=== PATIENT | female | born 1930 | race Two or more races ===

== ENCOUNTER 2016-10-10 10:18 | Outpatient (CLI) | payer MEDICARE, OTHER | END 2016-10-10 23:59 | disposition home or self-care (01) | LOC: WOU 10:18 | PROVIDERS: ATTEND Podiatrist Foot & Ankle Surgery | DX: L84 Corns and callosities (principal); E11.42 Type 2 diabetes mellitus with diabetic polyneuropathy; E11.51 Type 2 diabetes mellitus with diabetic peripheral angiopathy without gangrene | CPT/HCPCS: G0463 ==

== ENCOUNTER 2017-01-16 08:40 | Outpatient (CLI) | payer MEDICARE, OTHER | END 2017-01-16 23:59 | disposition home or self-care (01) | LOC: WOU 08:40 | PROVIDERS: ATTEND Podiatrist Foot & Ankle Surgery | DX: Z51.89 Encounter for other specified aftercare (principal); L84 Corns and callosities; E11.51 Type 2 diabetes mellitus with diabetic peripheral angiopathy without gangrene; B35.1 Tinea unguium; E11.42 Type 2 diabetes mellitus with diabetic polyneuropathy | CPT/HCPCS: A6402 ×2; G0463 ==

== ENCOUNTER 2017-04-17 08:31 | Outpatient (CLI) | payer MEDICARE, OTHER | END 2017-04-17 23:59 | disposition home or self-care (01) | LOC: WOU 08:31 | PROVIDERS: ATTEND Podiatrist Foot & Ankle Surgery | DX: L84 Corns and callosities (principal); Z74.09 Other reduced mobility; E11.51 Type 2 diabetes mellitus with diabetic peripheral angiopathy without gangrene; M21.6X2 Other acquired deformities of left foot; L85.3 Xerosis cutis; E11.42 Type 2 diabetes mellitus with diabetic polyneuropathy | CPT/HCPCS: G0463 ==

== ENCOUNTER 2017-06-19 11:05 | Outpatient (CLI) | payer MEDICARE, OTHER | END 2017-06-19 23:59 | disposition home or self-care (01) | LOC: WOU 11:05 | PROVIDERS: ATTEND Podiatrist Foot & Ankle Surgery | DX: Z09 Encounter for follow-up examination after completed treatment for conditions other than malignant neoplasm (principal); E11.51 Type 2 diabetes mellitus with diabetic peripheral angiopathy without gangrene; B35.1 Tinea unguium; L84 Corns and callosities; M21.962 Unspecified acquired deformity of left lower leg; Z74.09 Other reduced mobility | CPT/HCPCS: G0463 ==

== ENCOUNTER 2017-10-02 10:15 | Outpatient (CLI) | payer MEDICARE, OTHER | END 2017-10-02 23:59 | disposition home or self-care (01) | LOC: WOU 10:15 | PROVIDERS: ATTEND Podiatrist Foot & Ankle Surgery | DX: Z09 Encounter for follow-up examination after completed treatment for conditions other than malignant neoplasm (principal); E11.42 Type 2 diabetes mellitus with diabetic polyneuropathy; E11.51 Type 2 diabetes mellitus with diabetic peripheral angiopathy without gangrene; Z86.31 Personal history of diabetic foot ulcer; L84 Corns and callosities; M21.6X2 Other acquired deformities of left foot | CPT/HCPCS: A6402; G0463 ==

== ENCOUNTER 2017-10-08 09:42 | Outpatient (CLI) | payer MEDICARE, OTHER | END 2017-10-08 23:59 | disposition home or self-care (01) | LOC: WOU 09:42 | PROVIDERS: ATTEND Podiatrist Foot & Ankle Surgery | DX: I70.223 Atherosclerosis of native arteries of extremities with rest pain, bilateral legs (principal); I77.1 Stricture of artery ==

== ENCOUNTER 2017-10-27 13:08 | Outpatient (CLI) | payer MEDICARE, OTHER | END 2017-10-27 23:59 | disposition home or self-care (01) | LOC: VASLAB 13:08 | PROVIDERS: ATTEND Surgery Vascular Surgery | DX: I73.9 Peripheral vascular disease, unspecified (principal); Z98.890 Other specified postprocedural states; M79.672 Pain in left foot | CPT/HCPCS: G0463 ==

== ENCOUNTER 2017-11-20 08:00 | Outpatient (CLI) | payer MEDICARE, OTHER | END 2017-11-20 23:59 | disposition home or self-care (01) | LOC: WOU 08:00 | PROVIDERS: ATTEND Podiatrist Foot & Ankle Surgery | DX: L97.422 Non-pressure chronic ulcer of left heel and midfoot with fat layer exposed (principal); E11.42 Type 2 diabetes mellitus with diabetic polyneuropathy; E11.621 Type 2 diabetes mellitus with foot ulcer; E11.51 Type 2 diabetes mellitus with diabetic peripheral angiopathy without gangrene | CPT/HCPCS: 11042; A6402 ==

== ENCOUNTER 2017-12-02 08:00 | Outpatient (CLI) | payer MEDICARE, OTHER | END 2017-12-02 23:59 | disposition home or self-care (01) | LOC: WOU 08:00 | PROVIDERS: ATTEND Podiatrist Foot & Ankle Surgery | DX: E11.51 Type 2 diabetes mellitus with diabetic peripheral angiopathy without gangrene (principal); L84 Corns and callosities; L85.3 Xerosis cutis; M79.672 Pain in left foot; Z86.31 Personal history of diabetic foot ulcer; Z87.2 Personal history of diseases of the skin and subcutaneous tissue; Z79.84 Long term (current) use of oral hypoglycemic drugs | CPT/HCPCS: A6402; G0463 ==

== ENCOUNTER 2017-12-30 08:10 | Outpatient (CLI) | payer MEDICARE, OTHER | END 2017-12-30 23:59 | disposition home or self-care (01) | LOC: WOU 08:10 | PROVIDERS: ATTEND Podiatrist Foot & Ankle Surgery | DX: E11.621 Type 2 diabetes mellitus with foot ulcer (principal); L97.429 Non-pressure chronic ulcer of left heel and midfoot with unspecified severity; E11.51 Type 2 diabetes mellitus with diabetic peripheral angiopathy without gangrene; E11.65 Type 2 diabetes mellitus with hyperglycemia; Z79.84 Long term (current) use of oral hypoglycemic drugs; L84 Corns and callosities; M79.672 Pain in left foot | CPT/HCPCS: 11055; A6209; A6402 ==

== ENCOUNTER 2018-01-06 08:10 | Outpatient (CLI) | payer MEDICARE, OTHER | END 2018-01-06 23:59 | disposition home or self-care (01) | LOC: WOU 08:10 | PROVIDERS: ATTEND Podiatrist Foot & Ankle Surgery | DX: E11.621 Type 2 diabetes mellitus with foot ulcer (principal); E11.51 Type 2 diabetes mellitus with diabetic peripheral angiopathy without gangrene; L97.428 Non-pressure chronic ulcer of left heel and midfoot with other specified severity; L84 Corns and callosities; Z79.84 Long term (current) use of oral hypoglycemic drugs | CPT/HCPCS: 11042; A6209; A6402 ==

== ENCOUNTER 2018-01-15 08:11 | Outpatient (CLI) | payer MEDICARE, OTHER | END 2018-01-15 23:59 | disposition home or self-care (01) | LOC: WOU 08:11 | PROVIDERS: ATTEND Podiatrist Foot & Ankle Surgery | DX: L84 Corns and callosities (principal); M79.672 Pain in left foot; L90.9 Atrophic disorder of skin, unspecified; M21.6X2 Other acquired deformities of left foot; E11.9 Type 2 diabetes mellitus without complications; Z79.84 Long term (current) use of oral hypoglycemic drugs | CPT/HCPCS: A6209; A6402 ×2; G0463 ==

== ENCOUNTER 2018-03-02 07:50 | Outpatient (CLI) | payer MEDICARE, OTHER | END 2018-03-02 23:59 | disposition home or self-care (01) | LOC: WOU 07:50 | PROVIDERS: ATTEND Podiatrist Foot & Ankle Surgery | DX: L84 Corns and callosities (principal); E11.51 Type 2 diabetes mellitus with diabetic peripheral angiopathy without gangrene; M21.6X2 Other acquired deformities of left foot | CPT/HCPCS: G0463; Z7610 ==

== ENCOUNTER 2018-03-08 12:13 | Outpatient (CLI) | payer MEDICARE, OTHER | END 2018-03-08 23:59 | disposition home or self-care (01) | LOC: WOU 12:13 | PROVIDERS: ATTEND Podiatrist Foot & Ankle Surgery | DX: I73.9 Peripheral vascular disease, unspecified (principal) | CPT/HCPCS: 93926-TC; Z7610 ==

== ENCOUNTER 2018-04-06 08:00 | Outpatient (CLI) | payer MEDICARE, OTHER | END 2018-04-06 23:59 | disposition home or self-care (01) | LOC: WOU 08:00 | PROVIDERS: ATTEND Podiatrist Foot & Ankle Surgery | DX: L84 Corns and callosities (principal); E11.42 Type 2 diabetes mellitus with diabetic polyneuropathy; Z79.84 Long term (current) use of oral hypoglycemic drugs; I73.9 Peripheral vascular disease, unspecified; L90.9 Atrophic disorder of skin, unspecified; M79.672 Pain in left foot | CPT/HCPCS: G0463; Z7610 ==

== ENCOUNTER 2018-06-01 13:24 | Outpatient (CLI) | payer MEDICARE, OTHER | END 2018-06-01 23:59 | disposition home or self-care (01) | LOC: WOU 13:24 | PROVIDERS: ATTEND Podiatrist Foot & Ankle Surgery | DX: Z09 Encounter for follow-up examination after completed treatment for conditions other than malignant neoplasm (principal); E11.51 Type 2 diabetes mellitus with diabetic peripheral angiopathy without gangrene; L90.9 Atrophic disorder of skin, unspecified; M21.6X2 Other acquired deformities of left foot; L84 Corns and callosities | CPT/HCPCS: A6402; G0463; Z7610 ==

== ENCOUNTER 2018-10-05 14:37 | Outpatient (CLI) | payer MEDICARE, MEDICAID | END 2018-10-05 23:59 | disposition home or self-care (01) | LOC: WOU 14:37 | PROVIDERS: ATTEND Podiatrist Foot & Ankle Surgery | DX: E11.42 Type 2 diabetes mellitus with diabetic polyneuropathy (principal); L84 Corns and callosities; E11.51 Type 2 diabetes mellitus with diabetic peripheral angiopathy without gangrene; Z79.84 Long term (current) use of oral hypoglycemic drugs; I73.9 Peripheral vascular disease, unspecified; Z98.62 Peripheral vascular angioplasty status; R26.9 Unspecified abnormalities of gait and mobility; Z98.890 Other specified postprocedural states | CPT/HCPCS: G0463; Z7610 ==

== ENCOUNTER 2018-10-29 08:45 | Outpatient (CLI) | payer MEDICARE, OTHER | END 2018-10-29 23:59 | disposition home or self-care (01) | LOC: WOU 08:45 | PROVIDERS: ATTEND Podiatrist Foot & Ankle Surgery | DX: Z09 Encounter for follow-up examination after completed treatment for conditions other than malignant neoplasm (principal); L84 Corns and callosities; E11.51 Type 2 diabetes mellitus with diabetic peripheral angiopathy without gangrene; Z79.84 Long term (current) use of oral hypoglycemic drugs; M25.562 Pain in left knee; M23.8X2 Other internal derangements of left knee | CPT/HCPCS: G0463 ==

== ENCOUNTER 2018-11-26 08:05 | Outpatient (CLI) | payer MEDICARE, OTHER | END 2018-11-26 23:59 | disposition home or self-care (01) | LOC: WOU 08:05 | PROVIDERS: ATTEND Podiatrist Foot & Ankle Surgery | DX: Z09 Encounter for follow-up examination after completed treatment for conditions other than malignant neoplasm (principal); I73.9 Peripheral vascular disease, unspecified; E11.42 Type 2 diabetes mellitus with diabetic polyneuropathy; L84 Corns and callosities; M21.962 Unspecified acquired deformity of left lower leg; Z79.01 Long term (current) use of anticoagulants; Z79.84 Long term (current) use of oral hypoglycemic drugs | CPT/HCPCS: G0463 ==

== ENCOUNTER → 2019-01-28 | Outpatient (CLI) | payer MEDICARE, OTHER | END | disposition home or self-care (01) | LOC: WOU 08:05 | PROVIDERS: ATTEND Podiatrist Foot & Ankle Surgery | DX: Z09 Encounter for follow-up examination after completed treatment for conditions other than malignant neoplasm (principal); Z86.31 Personal history of diabetic foot ulcer; E11.42 Type 2 diabetes mellitus with diabetic polyneuropathy; E11.51 Type 2 diabetes mellitus with diabetic peripheral angiopathy without gangrene; L84 Corns and callosities; S90.32XA Contusion of left foot, initial encounter; X58.XXXA Exposure to other specified factors, initial encounter; Y92.89 Other specified places as the place of occurrence of the external cause; L85.3 Xerosis cutis; L90.9 Atrophic disorder of skin, unspecified; M21.6X2 Other acquired deformities of left foot; Z79.01 Long term (current) use of anticoagulants; Z79.84 Long term (current) use of oral hypoglycemic drugs | CPT/HCPCS: 82962; G0463 ==

== ENCOUNTER 2019-02-09 12:45 | Outpatient (CLI) | payer MEDICARE, OTHER | END 2019-02-09 23:59 | disposition home or self-care (01) | LOC: WOU 12:45 | PROVIDERS: ATTEND Podiatrist Foot & Ankle Surgery | DX: Z09 Encounter for follow-up examination after completed treatment for conditions other than malignant neoplasm (principal); L84 Corns and callosities; E11.51 Type 2 diabetes mellitus with diabetic peripheral angiopathy without gangrene; E11.42 Type 2 diabetes mellitus with diabetic polyneuropathy; S90.122D Contusion of left lesser toe(s) without damage to nail, subsequent encounter; X58.XXXD Exposure to other specified factors, subsequent encounter; Z79.84 Long term (current) use of oral hypoglycemic drugs | CPT/HCPCS: A6402; G0463 ==

== ENCOUNTER 2019-02-16 12:50 | Outpatient (CLI) | payer MEDICARE, OTHER | END 2019-02-16 23:59 | disposition home or self-care (01) | LOC: WOU 12:50 | PROVIDERS: ATTEND Podiatrist Foot & Ankle Surgery | DX: S90.32XD Contusion of left foot, subsequent encounter (principal); S81.812D Laceration without foreign body, left lower leg, subsequent encounter; W22.8XXD Striking against or struck by other objects, subsequent encounter; L84 Corns and callosities; R60.0 Localized edema; B35.1 Tinea unguium; L90.9 Atrophic disorder of skin, unspecified; E11.51 Type 2 diabetes mellitus with diabetic peripheral angiopathy without gangrene | CPT/HCPCS: A6402; G0463 ==

== ENCOUNTER 2019-04-20 13:10 | Outpatient (CLI) | payer MEDICARE, OTHER | END 2019-04-20 23:59 | disposition home or self-care (01) | LOC: WOU 13:10 | PROVIDERS: ATTEND Podiatrist Foot & Ankle Surgery | DX: Z09 Encounter for follow-up examination after completed treatment for conditions other than malignant neoplasm (principal); Z86.31 Personal history of diabetic foot ulcer; E11.51 Type 2 diabetes mellitus with diabetic peripheral angiopathy without gangrene; L90.9 Atrophic disorder of skin, unspecified; L84 Corns and callosities; R20.0 Anesthesia of skin; M21.962 Unspecified acquired deformity of left lower leg | CPT/HCPCS: G0463 ==

== ENCOUNTER 2019-06-02 09:34 | Outpatient (CLI) | payer MEDICARE, OTHER | END 2019-06-02 23:59 | disposition home or self-care (01) | LOC: CARD 09:34 | PROVIDERS: ATTEND Podiatrist Foot & Ankle Surgery | DX: I70.291 Other atherosclerosis of native arteries of extremities, right leg (principal) ==

== ENCOUNTER 2019-06-03 09:15 | Outpatient (CLI) | payer MEDICARE, OTHER | END 2019-06-03 23:59 | disposition home or self-care (01) | LOC: WOU 09:15 | PROVIDERS: ATTEND Podiatrist Foot & Ankle Surgery | DX: L84 Corns and callosities (principal); E11.51 Type 2 diabetes mellitus with diabetic peripheral angiopathy without gangrene; Z86.31 Personal history of diabetic foot ulcer; E11.42 Type 2 diabetes mellitus with diabetic polyneuropathy; Z79.84 Long term (current) use of oral hypoglycemic drugs | CPT/HCPCS: G0463 ==

== ENCOUNTER 2019-06-21 13:25 | Outpatient (CLI) | payer MEDICARE, OTHER | END 2019-06-21 23:59 | disposition home or self-care (01) | LOC: VASLAB 13:25 | PROVIDERS: ATTEND Surgery Vascular Surgery | DX: I73.9 Peripheral vascular disease, unspecified (principal) | CPT/HCPCS: G0463 ==

== ENCOUNTER 2019-07-26 11:05 | Outpatient (CLI) | payer MEDICARE, OTHER | END 2019-07-26 23:59 | disposition home or self-care (01) | LOC: WOU 11:05 | PROVIDERS: ATTEND Podiatrist Foot & Ankle Surgery | DX: L84 Corns and callosities (principal); L03.116 Cellulitis of left lower limb; E11.42 Type 2 diabetes mellitus with diabetic polyneuropathy; E11.51 Type 2 diabetes mellitus with diabetic peripheral angiopathy without gangrene; Z79.84 Long term (current) use of oral hypoglycemic drugs; R60.0 Localized edema; Z79.01 Long term (current) use of anticoagulants | CPT/HCPCS: G0463 ==

== ENCOUNTER 2019-08-26 08:05 | Outpatient (CLI) | payer MEDICARE, OTHER ==
[2019-09-12] MEDS ORDERED: CIPR500T5 PO (13:17)
[2019-09-12] MEDS ORDERED: CLIN300C11 PO (13:17)
== END 2019-08-26 23:59 | disposition home or self-care (01) ==
LOC: WOU 08:05
PROVIDERS: ATTEND Podiatrist Foot & Ankle Surgery
DX: E11.52 Type 2 diabetes mellitus with diabetic peripheral angiopathy with gangrene (principal); E11.621 Type 2 diabetes mellitus with foot ulcer; L97.529 Non-pressure chronic ulcer of other part of left foot with unspecified severity; L03.115 Cellulitis of right lower limb; E11.42 Type 2 diabetes mellitus with diabetic polyneuropathy; Z79.01 Long term (current) use of anticoagulants; Z79.84 Long term (current) use of oral hypoglycemic drugs
CPT/HCPCS: A6209; G0463

== ENCOUNTER 2019-09-09 08:05 | Outpatient (CLI) | payer MEDICARE, OTHER ==
[2019-09-09] MEDS ORDERED: FERR325T23 PO (10:53)
[2019-09-09] MEDS ORDERED: LISI-608 PO (10:53)
[2019-09-09] MEDS ORDERED: DEXL60CA3 PO (10:53)
[2019-09-09] MEDS ORDERED: CETI-108 PO (10:53)
[2019-09-09] MEDS ORDERED: GABA-534 PO (10:53)
[2019-09-09] MEDS ORDERED: ALLO300T2 PO (10:53)
[2019-09-09] MEDS ORDERED: METF-442 PO (10:53)
[2019-09-09] MEDS ORDERED: GLIM4TAB4 PO (10:53)
[2019-09-09] MEDS ORDERED: TRAM50TA2 PO (10:53)
[2019-09-09] MEDS ORDERED: ATOR40TA PO (10:53)
[2019-09-09] MEDS ORDERED: CHOL200026 PO (10:53)
[2019-09-09] MEDS ORDERED: CARV3.122 PO (10:53)
[2019-09-09] MEDS ORDERED: APIX5TAB4 PO (10:53)
[2019-09-09] MEDS ORDERED: DAPA10TA PO (10:53)
[2019-09-12] MEDS ORDERED: CLIN300C11 PO (13:17)
[2019-09-12] MEDS ORDERED: CIPR500T5 PO (13:17)
== END 2019-09-09 23:59 | disposition home or self-care (01) ==
LOC: WOU 08:05
PROVIDERS: ATTEND Podiatrist Foot & Ankle Surgery
DX: E11.52 Type 2 diabetes mellitus with diabetic peripheral angiopathy with gangrene (principal); E11.621 Type 2 diabetes mellitus with foot ulcer; L97.512 Non-pressure chronic ulcer of other part of right foot with fat layer exposed; L03.116 Cellulitis of left lower limb; L03.115 Cellulitis of right lower limb; M21.962 Unspecified acquired deformity of left lower leg; Z79.01 Long term (current) use of anticoagulants; Z79.84 Long term (current) use of oral hypoglycemic drugs
CPT/HCPCS: G0463

== ENCOUNTER 2019-09-09 08:48 | Inpatient (IN) | payer OTHER, MEDICARE ==
[~2019-09-09] VITALS: Ht 152.4 cm; Wt 76.7 kg
--- NOTE | 2019-09-09 09:07 | NUR ---
CALLED NURSING SUP FOR MED/SURG BED.
[2019-09-09] MEDS ORDERED: VANCOMYCIN 1 GM in IV D5W 250 ML IV ONE (09:30)
--- NOTE | 2019-09-09 09:33 | NUR ---
[facility] sent here for "gangrene/cellulitis IV abx, Vascular consult". PT AAOX3, VSS, RR EVEN & UNLABORED. PT SEEN & EVAL'D BY DR. MONTERO. FAMILY @ BS ASSISTING W/ TRANSLATION. DENIES CP, SOB, DIZZINESS, N/V, WEAKNESS @ THIS TIME. WILL CONT TO MONITOR.
[2019-09-09 09:38] LABS: BASOPHILS # (AUTO) 0.1 /CMM (0.0-0.2); BASOPHILS % (AUTO) 1.1 % (0.0-2.0); HEMATOCRIT 38 % (33-45); HEMOGLOBIN 12.3 g/dL (11.5-14.8); LYMPHOCYTES # (AUTO) 4.4 /CMM (0.8-4.8); LYMPHOCYTES % (AUTO) 33.6 % (20.0-44.0); MEAN CORPUSCULAR HGB CONC 33 g/dl (31.0-36.0); MEAN CORPUSCULAR VOLUME 100 fL (82-100); MONOCYTES % (AUTO) 7.6 % (2.0-12.0); NEUTROPHILS # (AUTO) 6.5 /CMM (1.8-8.9); NEUTROPHILS % (AUTO) 48.7 % (43.0-81.0); PLATELET COUNT (AUTO) 230 /CMM (150-450); RED BLOOD CELL COUNT(AUTO) 3.75 MIL/uL (4.0-5.2); WHITE BLOOD COUNT (AUTO) 13.3 K/uL (4.3-11.0)
[2019-09-09 09:54] LABS: CALCIUM, SERUM 9.1 mg/dL (8.5-10.1); CREATININE 1.3 mg/dL (0.6-1.3); POTASSIUM 4.9 mmol/L (3.5-5.1)
[2019-09-09 10:00] LABS: ALBUMIN 3.2 g/dL (3.4-5.0); BILIRUBIN,DIRECT 0.1 mg/dL (0.0-0.2); BILIRUBIN,TOTAL 0.4 mg/dL (0.2-1.0); TOTAL PROTEIN, SERUM 6.8 g/dL (6.4-8.2)
--- NOTE | 2019-09-09 10:45 | NUR ---
NURSING SUP GAVE M/S 207-1.
[2019-09-09] MEDS ORDERED: FERR325T23 PO (10:53)
[2019-09-09] MEDS ORDERED: DAPA10TA PO (10:53)
[2019-09-09] MEDS ORDERED: APIX5TAB4 PO (10:53)
[2019-09-09] MEDS ORDERED: CHOL200026 PO (10:53)
[2019-09-09] MEDS ORDERED: CETI-108 PO (10:53)
[2019-09-09] MEDS ORDERED: GABA-534 PO (10:53)
[2019-09-09] MEDS ORDERED: GLIM4TAB37 PO (10:53)
[2019-09-09] MEDS ORDERED: ALLO300T2 PO (10:53)
[2019-09-09] MEDS ORDERED: METF-442 PO (10:53)
[2019-09-09] MEDS ORDERED: DEXL60CA3 PO (10:53)
[2019-09-09] MEDS ORDERED: LISI-608 PO (10:53)
[2019-09-09] MEDS ORDERED: ATOR40TA PO (10:53)
[2019-09-09] MEDS ORDERED: CARV3.122 PO (10:53)
[2019-09-09] MEDS ORDERED: TRAM50TA2 PO (10:53)
--- NOTE | 2019-09-09 11:43 | NUR ---
CALLED [facility], ANDRESD SUSHILA
--- NOTE | 2019-09-09 13:18 | NUR ---
REPORT GIVEN TO NEO TAYLOR FOR SRIDHAR
[2019-09-09] MEDS ORDERED: ACETAMINOPHEN 325 MG TABLET PO PRN (14:00)
[2019-09-09] MEDS ORDERED: DEXTROSE 50%-WATER 50 ML DISP.SYRIN IV PRN (14:00)
[2019-09-09] MEDS ORDERED: TRAMADOL HCL 50 MG TABLET PO PRN (14:00)
[2019-09-09] MEDS ORDERED: Dapagliflozin Propanediol (Farxiga) 10 MG PO SCH (14:00)
[2019-09-09] MEDS ORDERED: ONDANSETRON HCL/PF 4 MG/2 ML VIAL IVP PRN (14:00)
[2019-09-09] MEDS ORDERED: MAG HYDROX/AL HYDROX/SIMETH 30 ML UDC PO PRN (14:00)
[2019-09-09] MEDS ORDERED: MAGNESIUM HYDROXIDE 30 ML UDC PO PRN (14:00)
--- NOTE | 2019-09-09 14:10 | NUR ---
MOLDED GRID AND PARTS INSPECTOR NOTES PATIENT RECEIVED FROM ER /WOUND CENTER. 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 PATIENT A/O X3, NO ACUTE RESPIRATORY DISTRESS, WAS COMPLAINING OF PAIN 7/10 PER PAIN SCALE. PATIENT ABLE TO MOVE IN THE BED BUT UNABLE TO AMBULATE USING DIAPER. IV ACCESS ON LEFT AC AREA INTACT. SKIN ASSESSMENT DONE, PICTURE TAKEN . V/S TAKEN BP 124/63, P-91, R-18, T-98.2, O2-97 ROOM AIR. FAMILY NEXT TO THE BED, CALL LIGHT WITHIN TO REACH. SAFETY PRECAUTION MAINTAINED ALL THE TIME. HOSPITALIST SUSHILA GARNER AWARE OF NEW PATIENT AND MEDICATION.
[2019-09-09] MEDS: HYDROCODONE/APAP 10/325MG 1 EA TABLET PO PRN (14:15)
--- NOTE | 2019-09-09 14:15 | NUR ---
RN NOTES ADMINISTERED NARCO 10/325 MG PO PRN FOR BLE PAIN 03/16 PER PATIENT REQUEST, V/S TAKEN BP124/63, P91, R-19. CONTINUED MONITORING.
[2019-09-09] MEDS ORDERED: FEE PK DOSING 1 MIN EA MC ONE (14:16)
[2019-09-09 14:28] VITALS: BP 124/63
[2019-09-09] MEDS ORDERED: PIPERACILLIN /TAZOBACTAM 3.375 G in IV D5W 50 ML IV ONE (15:00)
[2019-09-09] MEDS: APIXABAN 5 MG TABLET PO SCH (16:23)
[2019-09-09] MEDS: GLIMEPIRIDE 4 MG TABLET PO SCH (16:24)
[2019-09-09] MEDS: GABAPENTIN 300 MG CAPSULE PO SCH (16:24)
[2019-09-09] MEDS: BLOOD SUGAR DIAGNOSTIC 1 EACH STRIP IN SCH ×2 (16:35→21:31)
[2019-09-09] MEDS: INSULIN REGULAR, HUMAN 100 UNIT/ML 3 ML VIAL SQ PRN (16:38)
[2019-09-09] MEDS: Z GUARD REMEDY 2 OZ OINT TP PRN (16:39)
--- NOTE | 2019-09-09 17:00 | NUR ---
RN NOTES BS-175 MG/DL COVERAGE GIVEN, ALSO ADMINISTERED SCHEDULED MEDICATION, INFUSING ZOSYN 100 ML/HR ON LEFT AC AREA INTACT, PATIENT GETTING US ARTERIAL DOPPLER BLE. TOLERATED DINNER WELL. CONTINUED MONITORING.
--- NOTE | 2019-09-09 18:30 | NUR ---
RN NOTES PATIENT IN THE BED REFUSED PAIN, STABLE, ASSIST TURN AND REPOSITION Q 2 HR, ELEVATED BLE USING PILLOWS. FAMILY NEXT TO THE BED. CALL LIGHT WITHIN TO REACH. NEEDS ATTENDED AND ANTICIPATED. ENDORSED ONCOMING NURSE FOLLOW PLAN OF CARE.
--- NOTE | 2019-09-09 19:32 | NUR ---
RECEIVE PT IN BED A/O X 4 STABLE AND NOT IN DISTRESS S/P ORIF L HIP NO C/O PAIN AT THIS TIME. SAFETY MEASURES AT ALL TIMES WILL CONTINUE TO MONITOR Addendum: 09/09/19 at 1943 by SHIV CROWE RN MISTAKEN ENTRY. PLEASE DISREGARD THIS DOCUMENTATION THIS IS FOR DIFFERENT PATIENT
--- NOTE | 2019-09-09 19:40 | NUR ---
MS/RN NOTES RECEIVED PT. LYING IN BED. PT. IS AWAKE, ALERT AND ORIENTED X3. BREATHING EVEN AND UNLABORED ON ROOM AIR. NO SOB, RESPIRATORY DISTRESS OR COMPLAINTS OF PAIN NOTED AT THIS TIME. PT. WITH LEFT AC 20 GAUGE IV SALINE LOCK PRESENT, PATENT AND INTACT. PT. WITH FAMILY MEMBERS PRESENT AT BEDSIDE. BED LOCKED AND IN LOWEST POSITION, SIDE RAILS UP X2, BED ALARM ON, CALL LIGHT WITHIN REACH, WILL CONTINUE TO MONITOR.
[2019-09-09 20:17] VITALS: BP 109/51
[2019-09-09] MEDS: PIPERACILLIN /TAZOBACTAM 3.375 G in IV D5W 100 ML IV SCH (21:19)
[2019-09-09] MEDS: ATORVASTATIN 40 MG TABLET PO SCH (21:19)
[2019-09-10] MEDS: PIPERACILLIN /TAZOBACTAM 3.375 G in IV D5W 100 ML IV SCH ×3 (05:14→20:21)
[2019-09-10] MEDS: HYDROCODONE/APAP 10/325MG 1 EA TABLET PO PRN (06:02)
--- NOTE | 2019-09-10 06:15 | NUR ---
MS/RN NOTES PT. IS LYING IN BED, AWAKE, ALERT AND ORIENTED X3. BREATHING EVEN AND UNLABORED ON ROOM AIR. NO SOB OR RESPIRATORY DISTRESS NOTED AT THIS TIME AND THROUGHOUT SHIFT. PT. COMPLAINING OF PAIN 8/10 IN BILATERAL LOWER LEGS. ADMINISTERED TO PT. PRN PAIN MEDICATION ORDERED. WILL CONTINUE TO MONITOR FOR EFFECTIVENESS OF MEDICATION. PT. WITH LEFT AC 20 GAUGE PERIPHERAL IV PRESENT, PATENT AND INTACT ADMINISTERING TO PT. ZOSYN MEDICATION ORDERED. ALL PT. NEEDS MET. PT. WITH FAMILY MEMBER PRESENT AT BEDSIDE. BED LOCKED AND IN LOWEST POSITION, SIDE RAILS UP X2, BED ALARM ON, CALL LIGHT WITHIN REACH, WILL ENDORSE TO DAYSHIFT NURSE FOR CONTINUITY OF CARE.
[2019-09-10 06:44] LABS: BASOPHILS # (AUTO) 0.1 /CMM (0.0-0.2); BASOPHILS % (AUTO) 1.1 % (0.0-2.0); EOSINOPHILS % (AUTO) 9.3 % (0.0-6.0); HEMATOCRIT 35 % (33-45); HEMOGLOBIN 11.7 g/dL (11.5-14.8); LYMPHOCYTES # (AUTO) 5.6 /CMM (0.8-4.8); LYMPHOCYTES % (AUTO) 50.9 % (20.0-44.0); MEAN CORPUSCULAR HGB CONC 34 g/dl (31.0-36.0); MEAN CORPUSCULAR VOLUME 98 fL (82-100); MONOCYTES # (AUTO) 0.9 /CMM (0.1-1.30); MONOCYTES % (AUTO) 7.8 % (2.0-12.0); NEUTROPHILS # (AUTO) 3.4 /CMM (1.8-8.9); NEUTROPHILS % (AUTO) 30.9 % (43.0-81.0); PLATELET COUNT (AUTO) 231 /CMM (150-450); RED BLOOD CELL COUNT(AUTO) 3.56 MIL/uL (4.0-5.2)
[2019-09-10 07:22] LABS: CALCIUM, SERUM 9.2 mg/dL (8.5-10.1); CREATININE 1.3 mg/dL (0.6-1.3); MAGNESIUM 1.6 mg/dL (1.8-2.4); POTASSIUM 4.5 mmol/L (3.5-5.1)
[2019-09-10 07:29] LABS: THYROID STIMULATING HORMONE 2.298 uIU/mL (0.358-3.74)
[2019-09-10] MEDS: PANTOPRAZOLE 40 MG TABLET.DR PO SCH (07:30)
[2019-09-10] MEDS: BLOOD SUGAR DIAGNOSTIC 1 EACH STRIP IN SCH ×4 (07:30→21:35)
[2019-09-10 08:00] VITALS: BP 105/45
[2019-09-10] MEDS: CARVEDILOL 3.125 MG TABLET PO SCH (09:00)
[2019-09-10] MEDS: LISINOPRIL (5MG) 5 MG TABLET PO SCH (09:00)
[2019-09-10] MEDS: CHOLECALCIFEROL 1,000 UNIT TABLET (VIT D3) PO SCH (09:01)
[2019-09-10] MEDS: FERROUS SULFATE (325 MG) 325 MG/TAB TABLET PO SCH (09:01)
[2019-09-10] MEDS: GABAPENTIN 300 MG CAPSULE PO SCH ×2 (09:01→18:08)
[2019-09-10] MEDS: cetrizine 10 MG TABLET PO SCH (09:01)
[2019-09-10] MEDS: GLIMEPIRIDE 4 MG TABLET PO SCH ×2 (09:01→18:08)
[2019-09-10] MEDS: ALLOPURINOL 100 MG TABLET PO SCH (09:02)
[2019-09-10] MEDS: APIXABAN 5 MG TABLET PO SCH ×2 (09:04→18:09)
[2019-09-10] MEDS: VANCOMYCIN 1 GM in IV D5W 250ml IV SCH (11:38)
[2019-09-10] MEDS: Magnesium 1GM/D5W 100ML PREMIX 100 ML IV SCH ×2 (11:39→13:19)
[2019-09-10] MEDS: INSULIN REGULAR, HUMAN 100 UNIT/ML 3 ML VIAL SQ PRN ×3 (13:22→21:47)
[2019-09-10] MEDS: HYDROCODONE/APAP 5/325MG 1 EACH TABLET PO PRN ×2 (15:54→20:21)
[2019-09-10 16:00] VITALS: BP 130/58
--- NOTE | 2019-09-10 19:30 | NUR ---
RN NOTES RECEIVED PT. AWAKE ON BED, A/OX4. FRISIAN SPEAKING, FAMILY AT BEDSIDE, DENIES PAIN, NO SOB, CALL LIGHT WITHIN REACH, SIDERAILSUPX2, CONTINUE TO MONITOR
--- NOTE | 2019-09-10 20:21 | NUR ---
RN NOTES COMPLAINED OF LEFT FOOT WOUND - NORCO 5/325MG PO GIVEN ORDERED, V/S STABLE
[2019-09-10] MEDS: ATORVASTATIN 40 MG TABLET PO SCH (21:35)
[2019-09-10 21:50] VITALS: BP 122/56
--- NOTE | 2019-09-11 02:10 | NUR ---
RN NOTES COMPLAINED OF RIGHT FOOT PAIN- NORCO 5/325 MG PO GIVEN ORDERED, V/S STABLE
[2019-09-11] MEDS: HYDROCODONE/APAP 5/325MG 1 EACH TABLET PO PRN ×3 (02:39→11:06)
[2019-09-11] MEDS: PIPERACILLIN /TAZOBACTAM 3.375 G in IV D5W 100 ML IV SCH ×3 (05:21→20:23)
--- NOTE | 2019-09-11 06:15 | NUR ---
RN NOTES COMPLAINED OF RIGHT FOOT PAIN- NORCO 5/325MG PO GIVEN ORDERED, V/S STABLE
[2019-09-11 06:27] LABS: CALCIUM, SERUM 8.7 mg/dL (8.5-10.1); CREATININE 1.3 mg/dL (0.6-1.3); POTASSIUM 4.6 mmol/L (3.5-5.1)
--- NOTE | 2019-09-11 06:31 | NUR ---
RN NOTES AWAKE, MORNING CARE RENDERED, NOT IN DISTRESS, DAUGHTER AT BEDSIDE, SIDERAILSUPX2, PT. NEEDS ATTENDED
[2019-09-11 06:34] LABS: BASOPHILS # (AUTO) 0.1 /CMM (0.0-0.2); BASOPHILS % (AUTO) 1.2 % (0.0-2.0); EOSINOPHILS % (AUTO) 8.6 % (0.0-6.0); HEMATOCRIT 33 % (33-45); HEMOGLOBIN 11.1 g/dL (11.5-14.8); LYMPHOCYTES # (AUTO) 6.3 /CMM (0.8-4.8); LYMPHOCYTES % (AUTO) 55.6 % (20.0-44.0); MEAN CORPUSCULAR HGB CONC 33 g/dl (31.0-36.0); MEAN CORPUSCULAR VOLUME 98 fL (82-100); MONOCYTES # (AUTO) 0.9 /CMM (0.1-1.30); MONOCYTES % (AUTO) 8.2 % (2.0-12.0); NEUTROPHILS % (AUTO) 26.4 % (43.0-81.0); PLATELET COUNT (AUTO) 211 /CMM (150-450); WHITE BLOOD COUNT (AUTO) 11.3 K/uL (4.3-11.0)
--- NOTE | 2019-09-11 07:26 | NUR ---
MS RN OPENING NOTES RECEIVED PT AWAKE IN BED IN NO ACUTE SIGNS OF DISTRESS. DAUGHTER AT BEDSIDE. A/O X3. CITIZEN OF [place] SPEAKING, DENIES PAIN OR ANY DISCOMFORTS AT THIS TIME. BREATHING EVEN AND UNLABORED ON ROOM AIR. IV ACCESS ON LAC 20 GAUGE IV SALINE LOCK INTACT, PATENT AND FLUSHES WELL. BED LOCKED AND IN LOWEST POSITION, SIDE RAILS UP X2, BED ALARM ON, CALL LIGHT WITHIN REACH, WILL CONTINUE TO MONITOR.
[2019-09-11] MEDS: BLOOD SUGAR DIAGNOSTIC 1 EACH STRIP IN SCH ×4 (07:37→21:55)
[2019-09-11] MEDS: CHOLECALCIFEROL 1,000 UNIT TABLET (VIT D3) PO SCH (08:16)
[2019-09-11] MEDS: GABAPENTIN 300 MG CAPSULE PO SCH ×2 (08:16→16:23)
[2019-09-11] MEDS: cetrizine 10 MG TABLET PO SCH (08:16)
[2019-09-11] MEDS: PANTOPRAZOLE 40 MG TABLET.DR PO SCH (08:16)
[2019-09-11] MEDS: GLIMEPIRIDE 4 MG TABLET PO SCH ×2 (08:16→16:23)
[2019-09-11] MEDS: FERROUS SULFATE (325 MG) 325 MG/TAB TABLET PO SCH (08:16)
[2019-09-11] MEDS: ALLOPURINOL 100 MG TABLET PO SCH (08:16)
[2019-09-11] MEDS: CARVEDILOL 3.125 MG TABLET PO SCH (08:46)
[2019-09-11] MEDS: APIXABAN 5 MG TABLET PO SCH ×2 (08:47→16:24)
[2019-09-11] MEDS: LISINOPRIL (5MG) 5 MG TABLET PO SCH (08:47)
[2019-09-11 08:51] VITALS: BP 126/62
[2019-09-11] MEDS: VANCOMYCIN 1 GM in IV D5W 250ml IV SCH (10:13)
--- NOTE | 2019-09-11 11:18 | NUR ---
RN NOTES/ PAIN MANAGEMENT PT COMPLAINED OF RIGHT FOOT PAIN WITH SCALE OF 6/10. NORCO 5/325MG PO GIVEN AT 1106. V/S STABLE. WILL CONTINUE TO MONITOR AND REASSESS PT.
[2019-09-11] MEDS: INSULIN REGULAR, HUMAN 100 UNIT/ML 3 ML VIAL SQ PRN ×3 (11:53→22:04)
[2019-09-11 16:00] VITALS: BP 110/50
[2019-09-11] MEDS: POVIDONE-IODINE OINT 28.4 GM TUBE TP SCH (16:04)
[2019-09-11] MEDS: HYDROCODONE/APAP 10/325MG 1 EA TABLET PO PRN (17:32)
--- NOTE | 2019-09-11 17:34 | NUR ---
RN NOTES/ PAIN MANAGEMENT PT COMPLAINED OF RIGHT FOOT ACHING PAIN WITH SCALE OF 8/10. NORCO 10/325MG PO GIVEN AT 1732. V/S STABLE. WILL CONTINUE TO MONITOR AND REASSESS PT.
--- NOTE | 2019-09-11 18:33 | NUR ---
MS RN CLOSING NOTES PT IN BED AWAKE AND RESTING AT MODERATE HIGH BACKREST POSITION. FAMILY AT BEDSIDE. A/O X3. [place]EL[place] SPEAKING. ON ROOM AIR, TOLERATING WELL WITH NO SOB NOTED THROUGHOUT THE DAY. IV SL ON LAC G#20 INTACT, PATENT AND FLUSHES WELL. ALL NEEDS AND CARE PROVIDED WELL. SAFETY MEASURES KEPT IN PLACE. BED LOCKED AND IN LOWEST POSITION WITH SIDE RAILS UP X2. CALL LIGHT WITHIN REACH. WILL ENDORSE TO PATIENT CARE ASSOCIATE NURSE FOR SRIDHAR.
--- NOTE | 2019-09-11 19:45 | NUR ---
MSRN FULLY AWAKE, IVF AT TKO VIA LEFT AC. FAMILY AT BEDSIDE.
[2019-09-11 20:00] VITALS: BP 119/47
--- NOTE | 2019-09-11 21:21 | NUR ---
MSRN DUE MEDS ADMINISTERED, CONTINUED MONITORING.
[2019-09-11] MEDS: ATORVASTATIN 40 MG TABLET PO SCH (21:56)
--- NOTE | 2019-09-11 22:00 | NUR ---
MSRN BS 152, COVERED WITH 2 UNITS REGULAR INSULIN SQ PER SLIDING SCALE. REFUSED SNACKS FOR NOW. CLOSELY WATCHED. DAUGHTER AT BEDSIDE WILL STAY OVERNIGHT.
[2019-09-12] MEDS: PIPERACILLIN /TAZOBACTAM 3.375 G in IV D5W 100 ML IV SCH ×2 (05:37→14:30)
--- NOTE | 2019-09-12 06:02 | NUR ---
MSRN SLEPT WELL THROUGHOUT THE NIGHT. ZOSYN INFUSING WELL.
--- NOTE | 2019-09-12 07:20 | NUR ---
MS RN OPENING NOTES RECEIVED PT AWAKE IN BED WITH DAUGHTER AT BEDSIDE. A/O X3. [place] SPEAKING, DENIES PAIN OR ANY DISCOMFORTS AT THIS TIME. ON ROOM AIR, BREATHING EVEN AND UNLABORED. IV ACCESS ON LAC G#20 INTACT AND PATENT WITH IV ATB ZOSYN @ 25ML/HR INFUSING, NO S/S OF INFILTRATIONS NOTED. BED LOCKED AND IN LOWEST POSITION, SIDE RAILS UP X2. CALL LIGHT WITHIN REACH. WILL CONTINUE TO MONITOR.
[2019-09-12] MEDS: BLOOD SUGAR DIAGNOSTIC 1 EACH STRIP IN SCH ×3 (07:34→17:07)
[2019-09-12] MEDS: INSULIN REGULAR, HUMAN 100 UNIT/ML 3 ML VIAL SQ PRN ×3 (07:34→17:09)
[2019-09-12 07:37] LABS: CALCIUM, SERUM 9.2 mg/dL (8.5-10.1); CARBON DIOXIDE 27 mmol/L (21-32); CHLORIDE 101 mmol/L (98-107); CREATININE 1.4 mg/dL (0.6-1.3); GLUCOSE 156 mg/dL (74-106); POTASSIUM 4.3 mmol/L (3.5-5.1); SODIUM SERUM 137 mmol/L (136-145); UREA NITROGEN, BLOOD 14 mg/dL (7-18)
[2019-09-12 08:00] VITALS: BP 120/51
[2019-09-12] MEDS: FERROUS SULFATE (325 MG) 325 MG/TAB TABLET PO SCH (08:19)
[2019-09-12] MEDS: GABAPENTIN 300 MG CAPSULE PO SCH ×2 (08:19→16:51)
[2019-09-12] MEDS: cetrizine 10 MG TABLET PO SCH (08:19)
[2019-09-12] MEDS: PANTOPRAZOLE 40 MG TABLET.DR PO SCH (08:19)
[2019-09-12] MEDS: GLIMEPIRIDE 4 MG TABLET PO SCH ×2 (08:19→16:51)
[2019-09-12] MEDS: ALLOPURINOL 100 MG TABLET PO SCH (08:19)
[2019-09-12] MEDS: POVIDONE-IODINE OINT 28.4 GM TUBE TP SCH ×2 (08:20→16:52)
[2019-09-12] MEDS: CHOLECALCIFEROL 1,000 UNIT TABLET (VIT D3) PO SCH (08:20)
[2019-09-12] MEDS: APIXABAN 5 MG TABLET PO SCH ×2 (08:22→16:53)
[2019-09-12] MEDS: HYDROCODONE/APAP 5/325MG 1 EACH TABLET PO PRN ×2 (08:25→18:33)
--- NOTE | 2019-09-12 08:27 | NUR ---
RN NOTES PT C/O PAIN ON HER RIGHT FOOT, 6/10 SCALE. PRN NORCO 5/325MG PO GIVEN AT 0825. WILL CONTINUE TO MONITOR AND REASSESS PT.
[2019-09-12] MEDS: CARVEDILOL 3.125 MG TABLET PO SCH (08:34)
[2019-09-12] MEDS: LISINOPRIL (5MG) 5 MG TABLET PO SCH (08:34)
[2019-09-12] MEDS: VANCOMYCIN 1 GM in IV D5W 250ml IV SCH (10:58)
[2019-09-12] MEDS: Z GUARD REMEDY 2 OZ OINT TP PRN (12:01)
[2019-09-12] MEDS ORDERED: CLIN300C11 PO (13:17)
[2019-09-12] MEDS ORDERED: CIPR500T5 PO (13:17)
[2019-09-12 16:00] VITALS: BP 134/57
--- NOTE | 2019-09-12 18:50 | NUR ---
RN DISCHARGED NOTES PT DISCHARGED HOME IN STABLE MEDICAL CONDITION. A/O X4, [place] SPEAKING ONLY. ALL DUE NURSING CARE DONE AND MET. V/S TAKEN AND RECORDED. PHOTOS OF SKIN ISSUES TAKEN AND FILED IN CHART. ALL BELONGINGS ACCOUNTED FOR AND SIGNED FORM. IV ACCESS ON LAC REMOVED WITH NO BLEEDING NOTED, DRY DRESSING APPLIED. NAME ARMBAND REMOVED. HEALTH TEACHING/DISCHARGED INSTRUCTIONS GIVEN TO PT AND DAUGHTER MUNIRA, BOTH VERBALIZED UNDERSTANDING. PT LEFT UNIT VIA WHEELCHAIR @ 1845 ACCOMPANIED BY ME AND PT'S FAMILY. CHARGE NURSE AWARE OF DISCHARGE.
== END 2019-09-12 18:40 | disposition home health service (06) | DRG 872 ==
LOC: ER 08:51 → MED 12:39
PROVIDERS: ADMIT Nurse Practitioner Acute Care; ATTEND Nurse Practitioner Acute Care
DX: A41.9 Sepsis, unspecified organism (principal); E11.52 Type 2 diabetes mellitus with diabetic peripheral angiopathy with gangrene; L03.115 Cellulitis of right lower limb; E44.1 Mild protein-calorie malnutrition; E87.1 Hypo-osmolality and hyponatremia; L03.116 Cellulitis of left lower limb; E11.42 Type 2 diabetes mellitus with diabetic polyneuropathy; E11.621 Type 2 diabetes mellitus with foot ulcer; E11.628 Type 2 diabetes mellitus with other skin complications; L97.519 Non-pressure chronic ulcer of other part of right foot with unspecified severity; D72.829 Elevated white blood cell count, unspecified; I48.91 Unspecified atrial fibrillation; E78.5 Hyperlipidemia, unspecified; M10.9 Gout, unspecified; Z68.33 Body mass index [BMI] 33.0-33.9, adult; M81.0 Age-related osteoporosis without current pathological fracture; M77.30 Calcaneal spur, unspecified foot; Z79.01 Long term (current) use of anticoagulants; K21.9 Gastro-esophageal reflux disease without esophagitis
CPT/HCPCS: 36415; 71045-TC; 73630-TC; 80048-TC; 80061-TC; 80076-TC; 80202-TC; 82962-TC; 83605-TC; 83735-TC; 84100-TC; 84443-TC; 85025-TC; 85730-TC; 87040-TC; 87081-TC; G0378; J1815; J2543; J3370; J3475; J7060

== ENCOUNTER 2019-09-14 13:45 | Outpatient (CLI) | payer MEDICARE, OTHER ==
[~2019-09-14 13:45] MED LIST: ALLO300T2 PO; APIX5TAB4 PO; ATOR40TA PO; CARV3.122 PO; CETI-108 PO; CHOL200026 PO; CIPR500T5 PO; CLIN300C11 PO; DAPA10TA PO; DEXL60CA3 PO; FERR325T23 PO; GABA-534 PO; GLIM4TAB37 PO; LISI-608 PO; METF-442 PO; TRAM50TA2 PO
== END 2019-09-14 23:59 | disposition home or self-care (01) ==
LOC: WOU 13:45
PROVIDERS: ATTEND Podiatrist Foot & Ankle Surgery
DX: E11.52 Type 2 diabetes mellitus with diabetic peripheral angiopathy with gangrene (principal); I96 Gangrene, not elsewhere classified; E11.621 Type 2 diabetes mellitus with foot ulcer; L97.512 Non-pressure chronic ulcer of other part of right foot with fat layer exposed; R60.0 Localized edema; Z79.84 Long term (current) use of oral hypoglycemic drugs
CPT/HCPCS: G0463

== ENCOUNTER 2019-10-05 13:15 | Outpatient (CLI) | payer MEDICARE, OTHER | END 2019-10-05 23:59 | disposition home or self-care (01) | LOC: WOU 13:15 | PROVIDERS: ATTEND Podiatrist Foot & Ankle Surgery | DX: E11.621 Type 2 diabetes mellitus with foot ulcer (principal); L97.512 Non-pressure chronic ulcer of other part of right foot with fat layer exposed; E11.52 Type 2 diabetes mellitus with diabetic peripheral angiopathy with gangrene; I70.269 Atherosclerosis of native arteries of extremities with gangrene, unspecified extremity; L84 Corns and callosities; Z79.01 Long term (current) use of anticoagulants; Z79.84 Long term (current) use of oral hypoglycemic drugs | CPT/HCPCS: G0463 ==

== ENCOUNTER 2019-10-18 10:45 | Outpatient (CLI) | payer MEDICARE, OTHER | END 2019-10-18 23:59 | disposition home or self-care (01) | LOC: WOU 10:45 | PROVIDERS: ATTEND Podiatrist Foot & Ankle Surgery | DX: E11.52 Type 2 diabetes mellitus with diabetic peripheral angiopathy with gangrene (principal); I96 Gangrene, not elsewhere classified; Z79.84 Long term (current) use of oral hypoglycemic drugs; L84 Corns and callosities; Z79.01 Long term (current) use of anticoagulants; Z95.820 Peripheral vascular angioplasty status with implants and grafts | CPT/HCPCS: G0463 ==

== ENCOUNTER 2019-11-29 10:25 | Outpatient (CLI) | payer MEDICARE, OTHER | END 2019-11-29 23:59 | disposition home or self-care (01) | LOC: WOU 10:25 | PROVIDERS: ATTEND Podiatrist Foot & Ankle Surgery | DX: E11.621 Type 2 diabetes mellitus with foot ulcer (principal); L97.512 Non-pressure chronic ulcer of other part of right foot with fat layer exposed; L97.515 Non-pressure chronic ulcer of other part of right foot with muscle involvement without evidence of necrosis; E11.52 Type 2 diabetes mellitus with diabetic peripheral angiopathy with gangrene; I96 Gangrene, not elsewhere classified; Z79.84 Long term (current) use of oral hypoglycemic drugs; Z79.01 Long term (current) use of anticoagulants | CPT/HCPCS: 11042; 11043 ==

== ENCOUNTER 2019-12-06 10:30 | Outpatient (CLI) | payer MEDICARE, OTHER | END 2019-12-06 23:55 | disposition home or self-care (01) | LOC: WOU 10:30 | PROVIDERS: ATTEND Podiatrist Foot & Ankle Surgery | DX: E11.621 Type 2 diabetes mellitus with foot ulcer (principal); L97.512 Non-pressure chronic ulcer of other part of right foot with fat layer exposed; L97.515 Non-pressure chronic ulcer of other part of right foot with muscle involvement without evidence of necrosis; L84 Corns and callosities; E11.52 Type 2 diabetes mellitus with diabetic peripheral angiopathy with gangrene; I96 Gangrene, not elsewhere classified; Z79.84 Long term (current) use of oral hypoglycemic drugs; Z79.01 Long term (current) use of anticoagulants; Z95.820 Peripheral vascular angioplasty status with implants and grafts | CPT/HCPCS: 11042; 11043 ==

== ENCOUNTER 2019-12-16 10:55 | Outpatient (CLI) | payer MEDICARE, OTHER | END 2019-12-16 23:59 | disposition home or self-care (01) | LOC: WOU 10:55 | PROVIDERS: ATTEND Podiatrist Foot & Ankle Surgery | DX: E11.621 Type 2 diabetes mellitus with foot ulcer (principal); L97.512 Non-pressure chronic ulcer of other part of right foot with fat layer exposed; L97.515 Non-pressure chronic ulcer of other part of right foot with muscle involvement without evidence of necrosis; E11.52 Type 2 diabetes mellitus with diabetic peripheral angiopathy with gangrene; I96 Gangrene, not elsewhere classified; Z79.84 Long term (current) use of oral hypoglycemic drugs; Z95.820 Peripheral vascular angioplasty status with implants and grafts; Z79.01 Long term (current) use of anticoagulants | CPT/HCPCS: 11042; 11043; 11045 ==

== ENCOUNTER 2019-12-23 10:55 | Outpatient (CLI) | payer MEDICARE, OTHER | END 2019-12-23 23:59 | disposition home or self-care (01) | LOC: WOU 10:55 | PROVIDERS: ATTEND Podiatrist Foot & Ankle Surgery | DX: E11.52 Type 2 diabetes mellitus with diabetic peripheral angiopathy with gangrene (principal); E11.621 Type 2 diabetes mellitus with foot ulcer; I96 Gangrene, not elsewhere classified; L97.512 Non-pressure chronic ulcer of other part of right foot with fat layer exposed; L97.515 Non-pressure chronic ulcer of other part of right foot with muscle involvement without evidence of necrosis; Z95.828 Presence of other vascular implants and grafts; Z79.01 Long term (current) use of anticoagulants | CPT/HCPCS: 11043 ==

== ENCOUNTER 2020-01-03 11:20 | Outpatient (CLI) | payer MEDICARE, OTHER | END 2020-01-03 23:59 | disposition home or self-care (01) | LOC: WOU 11:20 | PROVIDERS: ATTEND Podiatrist Foot & Ankle Surgery | DX: E11.52 Type 2 diabetes mellitus with diabetic peripheral angiopathy with gangrene (principal); E11.621 Type 2 diabetes mellitus with foot ulcer; I96 Gangrene, not elsewhere classified; L97.512 Non-pressure chronic ulcer of other part of right foot with fat layer exposed; L97.515 Non-pressure chronic ulcer of other part of right foot with muscle involvement without evidence of necrosis; Z79.84 Long term (current) use of oral hypoglycemic drugs; L03.115 Cellulitis of right lower limb; L84 Corns and callosities; Z79.01 Long term (current) use of anticoagulants | CPT/HCPCS: 11043 ==

== ENCOUNTER 2020-01-10 10:55 | Outpatient (CLI) | payer MEDICARE, OTHER | END 2020-01-10 23:59 | disposition home health service (06) | LOC: WOU 10:55 | PROVIDERS: ATTEND Podiatrist Foot & Ankle Surgery | DX: E11.621 Type 2 diabetes mellitus with foot ulcer (principal); L97.512 Non-pressure chronic ulcer of other part of right foot with fat layer exposed; L97.515 Non-pressure chronic ulcer of other part of right foot with muscle involvement without evidence of necrosis; E11.52 Type 2 diabetes mellitus with diabetic peripheral angiopathy with gangrene; I96 Gangrene, not elsewhere classified; Z79.84 Long term (current) use of oral hypoglycemic drugs; Z79.01 Long term (current) use of anticoagulants; L03.115 Cellulitis of right lower limb | CPT/HCPCS: 11043 ==

== ENCOUNTER 2020-01-17 10:53 | Outpatient (CLI) | payer MEDICARE, OTHER | END 2020-01-17 23:59 | disposition home health service (06) | LOC: WOU 10:53 | PROVIDERS: ATTEND Podiatrist Foot & Ankle Surgery | DX: E11.52 Type 2 diabetes mellitus with diabetic peripheral angiopathy with gangrene (principal); E11.621 Type 2 diabetes mellitus with foot ulcer; L97.512 Non-pressure chronic ulcer of other part of right foot with fat layer exposed; L97.515 Non-pressure chronic ulcer of other part of right foot with muscle involvement without evidence of necrosis; L03.115 Cellulitis of right lower limb; Z79.84 Long term (current) use of oral hypoglycemic drugs; Z79.01 Long term (current) use of anticoagulants | CPT/HCPCS: 11042; 11043 ==

== ENCOUNTER 2020-01-24 10:50 | Outpatient (CLI) | payer MEDICARE, OTHER ==
[2020-01-24] MEDS ORDERED: CELLULOSE,OXIDIZED 1 PKT EACH MC ONE (12:00)
== END 2020-01-24 23:59 | disposition home health service (06) ==
LOC: WOU 10:50
PROVIDERS: ATTEND Podiatrist Foot & Ankle Surgery
DX: E11.621 Type 2 diabetes mellitus with foot ulcer (principal); L97.512 Non-pressure chronic ulcer of other part of right foot with fat layer exposed; L97.515 Non-pressure chronic ulcer of other part of right foot with muscle involvement without evidence of necrosis; E11.52 Type 2 diabetes mellitus with diabetic peripheral angiopathy with gangrene; I96 Gangrene, not elsewhere classified; Z79.84 Long term (current) use of oral hypoglycemic drugs; Z79.01 Long term (current) use of anticoagulants
CPT/HCPCS: 11042; 11043

== ENCOUNTER 2020-02-03 10:50 | Outpatient (CLI) | payer MEDICARE, OTHER ==
[2020-02-03] MEDS ORDERED: CELLULOSE,OXIDIZED 1 EA PACK MC ONE (12:00)
== END 2020-02-03 23:59 | disposition home health service (06) ==
LOC: WOU 10:50
PROVIDERS: ATTEND Podiatrist Foot & Ankle Surgery
DX: E11.621 Type 2 diabetes mellitus with foot ulcer (principal); L97.512 Non-pressure chronic ulcer of other part of right foot with fat layer exposed; L97.515 Non-pressure chronic ulcer of other part of right foot with muscle involvement without evidence of necrosis; L97.518 Non-pressure chronic ulcer of other part of right foot with other specified severity; E11.52 Type 2 diabetes mellitus with diabetic peripheral angiopathy with gangrene; I96 Gangrene, not elsewhere classified; Z79.84 Long term (current) use of oral hypoglycemic drugs; L03.115 Cellulitis of right lower limb; Z95.828 Presence of other vascular implants and grafts; Z79.01 Long term (current) use of anticoagulants
CPT/HCPCS: 11043

== ENCOUNTER 2020-02-10 10:18 | Outpatient (CLI) | payer MEDICARE, OTHER | END 2020-02-10 23:59 | disposition home health service (06) | LOC: WOU 10:18 | PROVIDERS: ATTEND Podiatrist Foot & Ankle Surgery | DX: E11.621 Type 2 diabetes mellitus with foot ulcer (principal); L97.512 Non-pressure chronic ulcer of other part of right foot with fat layer exposed; L97.515 Non-pressure chronic ulcer of other part of right foot with muscle involvement without evidence of necrosis; L97.513 Non-pressure chronic ulcer of other part of right foot with necrosis of muscle; E11.52 Type 2 diabetes mellitus with diabetic peripheral angiopathy with gangrene; I96 Gangrene, not elsewhere classified; L03.115 Cellulitis of right lower limb; Z79.84 Long term (current) use of oral hypoglycemic drugs; Z79.01 Long term (current) use of anticoagulants; Z79.82 Long term (current) use of aspirin | CPT/HCPCS: 11042; 11043 ==

== ENCOUNTER 2020-02-17 09:45 | Outpatient (CLI) | payer MEDICARE, OTHER | END 2020-02-17 23:59 | disposition home health service (06) | LOC: WOU 09:45 | PROVIDERS: ATTEND Podiatrist Foot & Ankle Surgery | DX: E11.621 Type 2 diabetes mellitus with foot ulcer (principal); L97.515 Non-pressure chronic ulcer of other part of right foot with muscle involvement without evidence of necrosis; L97.513 Non-pressure chronic ulcer of other part of right foot with necrosis of muscle; E11.52 Type 2 diabetes mellitus with diabetic peripheral angiopathy with gangrene; I96 Gangrene, not elsewhere classified; L03.115 Cellulitis of right lower limb; Z79.84 Long term (current) use of oral hypoglycemic drugs; Z79.01 Long term (current) use of anticoagulants; Z79.82 Long term (current) use of aspirin | CPT/HCPCS: 11043 ==

== ENCOUNTER 2020-02-22 08:14 | Outpatient (CLI) | payer MEDICARE, OTHER ==
[2020-02-22 09:05] LABS: BASOPHILS # (AUTO) 0.1 /CMM (0.0-0.2); BASOPHILS % (AUTO) 0.7 % (0.0-2.0); EOSINOPHILS % (AUTO) 4.7 % (0.0-6.0); HEMATOCRIT 32 % (33-45); HEMOGLOBIN 10.8 g/dL (11.5-14.8); LYMPHOCYTES # (AUTO) 6.4 /CMM (0.8-4.8); MEAN CORPUSCULAR HGB CONC 33 g/dl (31.0-36.0); MEAN CORPUSCULAR VOLUME 92 fL (82-100); MONOCYTES # (AUTO) 0.7 /CMM (0.1-1.30); MONOCYTES % (AUTO) 6.4 % (2.0-12.0); NEUTROPHILS # (AUTO) 3.7 /CMM (1.8-8.9); NEUTROPHILS % (AUTO) 32.2 % (43.0-81.0); PLATELET COUNT (AUTO) 309 /CMM (150-450); RED BLOOD CELL COUNT(AUTO) 3.53 MIL/uL (4.0-5.2); WHITE BLOOD COUNT (AUTO) 11.5 K/uL (4.3-11.0)
[2020-02-22 09:23] LABS: CALCIUM, SERUM 8.9 mg/dL (8.5-10.1); CREATININE 1.1 mg/dL (0.6-1.3); POTASSIUM 5.2 mmol/L (3.5-5.1)
== END 2020-02-22 23:59 | disposition home or self-care (01) ==
LOC: LAB 08:14
PROVIDERS: ATTEND Podiatrist Foot & Ankle Surgery
DX: Z01.818 Encounter for other preprocedural examination (principal); I70.0 Atherosclerosis of aorta; E11.621 Type 2 diabetes mellitus with foot ulcer
CPT/HCPCS: 36415; 71045-TC; 80048-TC; 85025-TC; 85610-TC

== ENCOUNTER 2020-02-23 11:57 | Outpatient (CLI) | payer MEDICARE, OTHER | END 2020-02-23 23:59 | disposition home or self-care (01) | LOC: MSC 11:57 | PROVIDERS: ATTEND Internal Medicine | DX: M86.68 Other chronic osteomyelitis, other site (principal); E11.51 Type 2 diabetes mellitus with diabetic peripheral angiopathy without gangrene; Z79.84 Long term (current) use of oral hypoglycemic drugs; I10 Essential (primary) hypertension; E78.5 Hyperlipidemia, unspecified; E46 Unspecified protein-calorie malnutrition; D50.9 Iron deficiency anemia, unspecified; Z87.39 Personal history of other diseases of the musculoskeletal system and connective tissue; Z87.19 Personal history of other diseases of the digestive system; Z79.891 Long term (current) use of opiate analgesic; Z79.899 Other long term (current) drug therapy ==

== ENCOUNTER 2020-02-24 10:40 | Outpatient (CLI) | payer MEDICARE, OTHER | END 2020-02-24 23:59 | disposition home health service (06) | LOC: WOU 10:40 | PROVIDERS: ATTEND Podiatrist Foot & Ankle Surgery | DX: E11.621 Type 2 diabetes mellitus with foot ulcer (principal); L97.515 Non-pressure chronic ulcer of other part of right foot with muscle involvement without evidence of necrosis; L97.513 Non-pressure chronic ulcer of other part of right foot with necrosis of muscle; E11.52 Type 2 diabetes mellitus with diabetic peripheral angiopathy with gangrene; I96 Gangrene, not elsewhere classified; Z79.84 Long term (current) use of oral hypoglycemic drugs; L03.115 Cellulitis of right lower limb; Z79.01 Long term (current) use of anticoagulants | CPT/HCPCS: 11042; 11043 ==

== ENCOUNTER 2020-02-28 08:47 | Outpatient (CLI) | payer MEDICARE, OTHER | END 2020-02-28 23:59 | disposition home or self-care (01) | LOC: LAB 08:47 | PROVIDERS: ATTEND Podiatrist Foot & Ankle Surgery | DX: Z01.812 Encounter for preprocedural laboratory examination (principal); Z11.59 Encounter for screening for other viral diseases | CPT/HCPCS: C9803; U0003 ==

== ENCOUNTER 2020-03-02 06:27 | Day surgery (SDC) | payer MEDICARE, OTHER | END 2020-03-02 10:35 | disposition home or self-care (01) | LOC: DS 06:27 | PROVIDERS: ATTEND Podiatrist Foot & Ankle Surgery | DX: E11.621 Type 2 diabetes mellitus with foot ulcer (principal); E11.52 Type 2 diabetes mellitus with diabetic peripheral angiopathy with gangrene; I96 Gangrene, not elsewhere classified; L97.518 Non-pressure chronic ulcer of other part of right foot with other specified severity; M86.8X7 Other osteomyelitis, ankle and foot; K21.9 Gastro-esophageal reflux disease without esophagitis; E78.5 Hyperlipidemia, unspecified; M10.9 Gout, unspecified; Z79.84 Long term (current) use of oral hypoglycemic drugs; Z79.899 Other long term (current) drug therapy | CPT/HCPCS: 11044; 15275; 28810; 82962 ×2; 87070 ×2; 88305; 88311; J0690; J1100; J2405; Q4186 ==

== ENCOUNTER 2020-03-07 10:45 | Outpatient (CLI) | payer MEDICARE, OTHER | END 2020-03-07 23:59 | disposition home health service (06) | LOC: WOU 10:45 | PROVIDERS: ATTEND Podiatrist Foot & Ankle Surgery | DX: E11.621 Type 2 diabetes mellitus with foot ulcer (principal); L97.512 Non-pressure chronic ulcer of other part of right foot with fat layer exposed; E11.52 Type 2 diabetes mellitus with diabetic peripheral angiopathy with gangrene; I96 Gangrene, not elsewhere classified; Z79.84 Long term (current) use of oral hypoglycemic drugs; L03.115 Cellulitis of right lower limb; Z89.421 Acquired absence of other right toe(s); Z79.01 Long term (current) use of anticoagulants | CPT/HCPCS: 11042 ==

== ENCOUNTER 2020-03-16 09:50 | Outpatient (CLI) | payer MEDICARE, OTHER | END 2020-03-16 23:59 | disposition home health service (06) | LOC: WOU 09:50 | PROVIDERS: ATTEND Podiatrist Foot & Ankle Surgery | DX: E11.621 Type 2 diabetes mellitus with foot ulcer (principal); L97.512 Non-pressure chronic ulcer of other part of right foot with fat layer exposed; L97.518 Non-pressure chronic ulcer of other part of right foot with other specified severity; E11.40 Type 2 diabetes mellitus with diabetic neuropathy, unspecified; E11.51 Type 2 diabetes mellitus with diabetic peripheral angiopathy without gangrene; L84 Corns and callosities; Z89.421 Acquired absence of other right toe(s); Z79.84 Long term (current) use of oral hypoglycemic drugs; Z79.01 Long term (current) use of anticoagulants; L03.115 Cellulitis of right lower limb | CPT/HCPCS: 15275; Q4186 ==

== ENCOUNTER 2020-03-21 08:23 | Outpatient (CLI) | payer MEDICARE, OTHER | END 2020-03-21 23:59 | disposition home or self-care (01) | LOC: MSC 08:23 | PROVIDERS: ATTEND Internal Medicine | DX: I73.9 Peripheral vascular disease, unspecified (principal); Z95.820 Peripheral vascular angioplasty status with implants and grafts; Z89.421 Acquired absence of other right toe(s); E11.40 Type 2 diabetes mellitus with diabetic neuropathy, unspecified; I10 Essential (primary) hypertension; F32.9 Major depressive disorder, single episode, unspecified; E78.5 Hyperlipidemia, unspecified; E46 Unspecified protein-calorie malnutrition; D50.9 Iron deficiency anemia, unspecified; Z79.01 Long term (current) use of anticoagulants; Z79.891 Long term (current) use of opiate analgesic; Z79.899 Other long term (current) drug therapy ==

== ENCOUNTER 2020-03-23 09:55 | Outpatient (CLI) | payer MEDICARE, OTHER | END 2020-03-23 23:59 | disposition home health service (06) | LOC: WOU 09:55 | PROVIDERS: ATTEND Podiatrist Foot & Ankle Surgery | DX: E11.621 Type 2 diabetes mellitus with foot ulcer (principal); L97.512 Non-pressure chronic ulcer of other part of right foot with fat layer exposed; L97.518 Non-pressure chronic ulcer of other part of right foot with other specified severity; Z79.84 Long term (current) use of oral hypoglycemic drugs; E11.51 Type 2 diabetes mellitus with diabetic peripheral angiopathy without gangrene; Z89.421 Acquired absence of other right toe(s); Z79.01 Long term (current) use of anticoagulants; Z79.899 Other long term (current) drug therapy; Z99.3 Dependence on wheelchair | CPT/HCPCS: 15275; Q4186 ==

== ENCOUNTER 2020-03-30 08:20 | Outpatient (CLI) | payer MEDICARE, OTHER | END 2020-03-30 23:59 | disposition home health service (06) | LOC: WOU 08:20 | PROVIDERS: ATTEND Podiatrist Foot & Ankle Surgery | DX: E11.621 Type 2 diabetes mellitus with foot ulcer (principal); L97.512 Non-pressure chronic ulcer of other part of right foot with fat layer exposed; L97.518 Non-pressure chronic ulcer of other part of right foot with other specified severity; E11.51 Type 2 diabetes mellitus with diabetic peripheral angiopathy without gangrene; Z89.421 Acquired absence of other right toe(s); Z79.84 Long term (current) use of oral hypoglycemic drugs; Z79.01 Long term (current) use of anticoagulants | CPT/HCPCS: 11042; 87070-TC; 87075-TC ==

== ENCOUNTER 2020-04-06 08:10 | Outpatient (CLI) | payer MEDICARE, OTHER | END 2020-04-06 23:59 | disposition home health service (06) | LOC: WOU 08:10 | PROVIDERS: ATTEND Podiatrist Foot & Ankle Surgery | DX: E11.621 Type 2 diabetes mellitus with foot ulcer (principal); L97.512 Non-pressure chronic ulcer of other part of right foot with fat layer exposed; L97.518 Non-pressure chronic ulcer of other part of right foot with other specified severity; E11.51 Type 2 diabetes mellitus with diabetic peripheral angiopathy without gangrene; Z89.421 Acquired absence of other right toe(s); Z99.3 Dependence on wheelchair; Z79.84 Long term (current) use of oral hypoglycemic drugs; Z79.01 Long term (current) use of anticoagulants | CPT/HCPCS: 15275; Q4186 ==

== ENCOUNTER → 2020-04-13 | Outpatient (CLI) | payer MEDICARE, OTHER ==
[~2020-04-13] MED LIST changes: +LIDOCAINE SOLN 4% 50 ML BOTTLE ONE
== END | disposition home health service (06) ==
LOC: WOU 08:20
PROVIDERS: ATTEND Podiatrist Foot & Ankle Surgery
DX: E11.621 Type 2 diabetes mellitus with foot ulcer (principal); L97.512 Non-pressure chronic ulcer of other part of right foot with fat layer exposed; L97.518 Non-pressure chronic ulcer of other part of right foot with other specified severity; E11.51 Type 2 diabetes mellitus with diabetic peripheral angiopathy without gangrene; Z79.84 Long term (current) use of oral hypoglycemic drugs; Z89.421 Acquired absence of other right toe(s); Z79.01 Long term (current) use of anticoagulants; Z79.899 Other long term (current) drug therapy
CPT/HCPCS: 15275; Q4186

== ENCOUNTER 2020-04-18 15:20 | Outpatient (CLI) | payer MEDICARE, OTHER ==
[~2020-04-18 15:20] MED LIST changes: -LIDOCAINE SOLN 4% 50 ML BOTTLE ONE
== END 2020-04-18 23:59 | disposition home health service (06) ==
LOC: WOU 15:20
PROVIDERS: ATTEND Podiatrist Foot & Ankle Surgery
DX: E11.621 Type 2 diabetes mellitus with foot ulcer (principal); L97.512 Non-pressure chronic ulcer of other part of right foot with fat layer exposed; E11.51 Type 2 diabetes mellitus with diabetic peripheral angiopathy without gangrene; Z89.421 Acquired absence of other right toe(s); Z79.84 Long term (current) use of oral hypoglycemic drugs; Z79.01 Long term (current) use of anticoagulants
CPT/HCPCS: 15275; Q4186

== ENCOUNTER 2020-04-20 08:05 | Outpatient (CLI) | payer MEDICARE, OTHER | END 2020-04-20 23:59 | disposition home or self-care (01) | LOC: MSC 08:05 | PROVIDERS: ATTEND Internal Medicine | DX: N39.0 Urinary tract infection, site not specified (principal); Z89.421 Acquired absence of other right toe(s); I73.9 Peripheral vascular disease, unspecified; E11.42 Type 2 diabetes mellitus with diabetic polyneuropathy; I10 Essential (primary) hypertension; E78.5 Hyperlipidemia, unspecified; E46 Unspecified protein-calorie malnutrition; D50.9 Iron deficiency anemia, unspecified; K21.9 Gastro-esophageal reflux disease without esophagitis; Z79.01 Long term (current) use of anticoagulants; Z79.899 Other long term (current) drug therapy ==

== ENCOUNTER 2020-04-25 15:11 | Outpatient (CLI) | payer MEDICARE, OTHER | END 2020-04-25 23:59 | disposition home health service (06) | LOC: WOU 15:11 | PROVIDERS: ATTEND Podiatrist Foot & Ankle Surgery | DX: E11.621 Type 2 diabetes mellitus with foot ulcer (principal); L97.512 Non-pressure chronic ulcer of other part of right foot with fat layer exposed; E11.51 Type 2 diabetes mellitus with diabetic peripheral angiopathy without gangrene; Z89.421 Acquired absence of other right toe(s); Z79.84 Long term (current) use of oral hypoglycemic drugs; Z79.01 Long term (current) use of anticoagulants | CPT/HCPCS: 15275; Q4186 ×2 ==

== ENCOUNTER 2020-05-04 09:35 | Outpatient (CLI) | payer MEDICARE, OTHER ==
[2020-05-04] MEDS ORDERED: LIDOCAINE SOLN 4% 50 ML BOTTLE ONE (09:53)
[2020-05-04] MEDS ORDERED: CADEXOMER IODINE UD 5 GM TUBE ONE (10:36)
== END 2020-05-04 23:59 | disposition home health service (06) ==
LOC: WOU 09:35
PROVIDERS: ATTEND Podiatrist Foot & Ankle Surgery
DX: E11.621 Type 2 diabetes mellitus with foot ulcer (principal); L97.512 Non-pressure chronic ulcer of other part of right foot with fat layer exposed; E11.51 Type 2 diabetes mellitus with diabetic peripheral angiopathy without gangrene; Z79.84 Long term (current) use of oral hypoglycemic drugs; Z89.421 Acquired absence of other right toe(s); Z79.01 Long term (current) use of anticoagulants
CPT/HCPCS: 11042

== ENCOUNTER 2020-05-16 15:00 | Outpatient (CLI) | payer MEDICARE, OTHER ==
[2020-05-16] MEDS ORDERED: CADEXOMER IODINE UD 5 GM TUBE ONE (15:42)
== END 2020-05-16 23:59 | disposition home health service (06) ==
LOC: WOU 15:00
PROVIDERS: ATTEND Podiatrist Foot & Ankle Surgery
DX: E11.621 Type 2 diabetes mellitus with foot ulcer (principal); L97.512 Non-pressure chronic ulcer of other part of right foot with fat layer exposed; E11.51 Type 2 diabetes mellitus with diabetic peripheral angiopathy without gangrene; Z79.84 Long term (current) use of oral hypoglycemic drugs; Z79.01 Long term (current) use of anticoagulants; Z89.421 Acquired absence of other right toe(s)
CPT/HCPCS: 11042

== ENCOUNTER 2020-05-23 13:00 | Outpatient (CLI) | payer MEDICARE, OTHER ==
[~2020-05-23 13:00] MED LIST changes: +LIDOCAINE SOLN 4% 50 ML BOTTLE ONE
== END 2020-05-23 23:59 | disposition home health service (06) ==
LOC: WOU 13:00
PROVIDERS: ATTEND Podiatrist Foot & Ankle Surgery
DX: E11.621 Type 2 diabetes mellitus with foot ulcer (principal); L97.512 Non-pressure chronic ulcer of other part of right foot with fat layer exposed; E11.51 Type 2 diabetes mellitus with diabetic peripheral angiopathy without gangrene; Z89.421 Acquired absence of other right toe(s); Z79.84 Long term (current) use of oral hypoglycemic drugs; Z79.01 Long term (current) use of anticoagulants
CPT/HCPCS: 11042

== ENCOUNTER 2020-05-30 12:55 | Outpatient (CLI) | payer MEDICARE, OTHER ==
[~2020-05-30 12:55] MED LIST changes: -LIDOCAINE SOLN 4% 50 ML BOTTLE ONE
[2020-05-30] MEDS ORDERED: LIDOCAINE 2% JEL 5 ML TUBE ONE (12:57)
== END 2020-05-30 23:59 | disposition home health service (06) ==
LOC: WOU 12:55
PROVIDERS: ATTEND Podiatrist Foot & Ankle Surgery
DX: E11.621 Type 2 diabetes mellitus with foot ulcer (principal); L97.512 Non-pressure chronic ulcer of other part of right foot with fat layer exposed; E11.40 Type 2 diabetes mellitus with diabetic neuropathy, unspecified; E11.51 Type 2 diabetes mellitus with diabetic peripheral angiopathy without gangrene; Z79.84 Long term (current) use of oral hypoglycemic drugs; Z79.01 Long term (current) use of anticoagulants; Z89.421 Acquired absence of other right toe(s)
CPT/HCPCS: 11042

== ENCOUNTER 2020-06-06 12:55 | Outpatient (CLI) | payer MEDICARE, OTHER | END 2020-06-06 23:59 | disposition home health service (06) | LOC: WOU 12:55 | PROVIDERS: ATTEND Podiatrist Foot & Ankle Surgery | DX: E11.621 Type 2 diabetes mellitus with foot ulcer (principal); L97.512 Non-pressure chronic ulcer of other part of right foot with fat layer exposed; E11.51 Type 2 diabetes mellitus with diabetic peripheral angiopathy without gangrene; Z89.421 Acquired absence of other right toe(s); Z79.84 Long term (current) use of oral hypoglycemic drugs; Z79.01 Long term (current) use of anticoagulants | CPT/HCPCS: 11042 ==

== ENCOUNTER 2020-06-13 13:00 | Outpatient (CLI) | payer MEDICARE, OTHER | END 2020-06-13 23:59 | disposition home health service (06) | LOC: WOU 13:00 | PROVIDERS: ATTEND Podiatrist Foot & Ankle Surgery | DX: E11.621 Type 2 diabetes mellitus with foot ulcer (principal); L97.512 Non-pressure chronic ulcer of other part of right foot with fat layer exposed; T86.828 Other complications of skin graft (allograft) (autograft); E11.51 Type 2 diabetes mellitus with diabetic peripheral angiopathy without gangrene; E11.69 Type 2 diabetes mellitus with other specified complication; M86.371 Chronic multifocal osteomyelitis, right ankle and foot; Z79.84 Long term (current) use of oral hypoglycemic drugs; R05 Cough; Z89.421 Acquired absence of other right toe(s); Z79.01 Long term (current) use of anticoagulants | CPT/HCPCS: 11042; 71045; G0463 ==

== ENCOUNTER 2020-06-14 15:01 | Outpatient (CLI) | payer MEDICARE, OTHER ==
[2020-06-14 16:22] LABS: APPEARANCE,URINE CLEAR (CLEAR); BILIRUBIN,URINE NEGATIVE (NEGATIVE); BLOOD, URINE SMALL Ery/uL (NEGATIVE); COLOR,URINE YELLOW (YELLOW); KETONES,URINE NEGATIVE (NEGATIVE); LEUKOCYTE ESTERASE ,URINE LARGE (NEGATIVE); NITRITE, URINE NEGATIVE (NEGATIVE); PROTEIN,URINE NEGATIVE (NEGATIVE); UGLUCOSE NEGATIVE (NEGATIVE); UROBILINOGEN,URINE 0.2 EU/dL (0.2)
[2020-06-14 17:02] LABS: BACTERIA,URINE 3+ /HPF (None Seen); WBC,URINE 51-80 /HPF (0-3); YEAST,URINE Few /HPF (None Seen)
== END 2020-06-14 23:59 | disposition home or self-care (01) ==
LOC: MSC 15:01
PROVIDERS: ATTEND Internal Medicine
DX: N39.0 Urinary tract infection, site not specified (principal); I73.9 Peripheral vascular disease, unspecified; E11.42 Type 2 diabetes mellitus with diabetic polyneuropathy; Z79.84 Long term (current) use of oral hypoglycemic drugs; I10 Essential (primary) hypertension; E78.5 Hyperlipidemia, unspecified; E46 Unspecified protein-calorie malnutrition; D50.9 Iron deficiency anemia, unspecified; K21.9 Gastro-esophageal reflux disease without esophagitis; Z89.421 Acquired absence of other right toe(s); Z79.899 Other long term (current) drug therapy
CPT/HCPCS: 81001; 87077; 87086; 87186 ×2; G0463; 81000-TC

== ENCOUNTER 2020-06-20 14:45 | Outpatient (CLI) | payer MEDICARE, OTHER | END 2020-06-20 23:59 | disposition home health service (06) | LOC: WOU 14:45 | PROVIDERS: ATTEND Podiatrist Foot & Ankle Surgery | DX: E11.621 Type 2 diabetes mellitus with foot ulcer (principal); L97.512 Non-pressure chronic ulcer of other part of right foot with fat layer exposed; L97.516 Non-pressure chronic ulcer of other part of right foot with bone involvement without evidence of necrosis; L03.115 Cellulitis of right lower limb; E11.69 Type 2 diabetes mellitus with other specified complication; E11.51 Type 2 diabetes mellitus with diabetic peripheral angiopathy without gangrene; M86.371 Chronic multifocal osteomyelitis, right ankle and foot; Z79.84 Long term (current) use of oral hypoglycemic drugs; T86.828 Other complications of skin graft (allograft) (autograft); Z89.421 Acquired absence of other right toe(s); L84 Corns and callosities; Z79.01 Long term (current) use of anticoagulants | CPT/HCPCS: 11042; 11044 ==

== ENCOUNTER 2020-06-27 14:30 | Outpatient (CLI) | payer MEDICARE, OTHER | END 2020-06-27 23:59 | disposition home health service (06) | LOC: WOU 14:30 | PROVIDERS: ATTEND Podiatrist Foot & Ankle Surgery | DX: E11.621 Type 2 diabetes mellitus with foot ulcer (principal); L97.512 Non-pressure chronic ulcer of other part of right foot with fat layer exposed; L97.518 Non-pressure chronic ulcer of other part of right foot with other specified severity; E11.51 Type 2 diabetes mellitus with diabetic peripheral angiopathy without gangrene; E11.69 Type 2 diabetes mellitus with other specified complication; M86.371 Chronic multifocal osteomyelitis, right ankle and foot; L84 Corns and callosities; L03.115 Cellulitis of right lower limb; T86.828 Other complications of skin graft (allograft) (autograft); Z79.84 Long term (current) use of oral hypoglycemic drugs; Z79.01 Long term (current) use of anticoagulants | CPT/HCPCS: 11042 ==

== ENCOUNTER 2020-06-28 11:34 | Outpatient (CLI) | payer MEDICARE, OTHER ==
[2020-06-28 13:14] LABS: BASOPHILS # (AUTO) 0.1 /CMM (0.0-0.2); EOSINOPHILS % (AUTO) 4.3 % (0.0-6.0); HEMATOCRIT 40 % (33-45); HEMOGLOBIN 12.8 g/dL (11.5-14.8); LYMPHOCYTES # (AUTO) 5.1 /CMM (0.8-4.8); LYMPHOCYTES % (AUTO) 46.6 % (20.0-44.0); MEAN CORPUSCULAR HGB CONC 32 g/dl (31.0-36.0); MEAN CORPUSCULAR VOLUME 97 fL (82-100); MONOCYTES # (AUTO) 0.7 /CMM (0.1-1.30); MONOCYTES % (AUTO) 6.1 % (2.0-12.0); NEUTROPHILS # (AUTO) 4.6 /CMM (1.8-8.9); PLATELET COUNT (AUTO) 233 /CMM (150-450); RED BLOOD CELL COUNT(AUTO) 4.09 MIL/uL (4.0-5.2)
[2020-06-28 13:23] LABS: CALCIUM, SERUM 8.8 mg/dL (8.5-10.1); CREATININE 1.3 mg/dL (0.6-1.3); POTASSIUM 4.9 mmol/L (3.5-5.1)
== END 2020-06-28 23:59 | disposition home or self-care (01) ==
LOC: LAB 11:34
DX: Z01.818 Encounter for other preprocedural examination (principal); I70.239 Atherosclerosis of native arteries of right leg with ulceration of unspecified site
CPT/HCPCS: 36415; 80048-TC; 85025-TC; 85730-TC

== ENCOUNTER → 2020-07-04 | Outpatient (CLI) | payer MEDICARE, OTHER | END | disposition home health service (06) | LOC: WOU 14:45 | PROVIDERS: ATTEND Podiatrist Foot & Ankle Surgery | DX: E11.621 Type 2 diabetes mellitus with foot ulcer (principal); L97.512 Non-pressure chronic ulcer of other part of right foot with fat layer exposed; E11.69 Type 2 diabetes mellitus with other specified complication; M86.371 Chronic multifocal osteomyelitis, right ankle and foot; E11.51 Type 2 diabetes mellitus with diabetic peripheral angiopathy without gangrene; Z79.84 Long term (current) use of oral hypoglycemic drugs; L84 Corns and callosities; Z79.01 Long term (current) use of anticoagulants; Z89.421 Acquired absence of other right toe(s) | CPT/HCPCS: 11042 ==

== ENCOUNTER 2020-07-11 14:30 | Outpatient (CLI) | payer MEDICARE, OTHER | END 2020-07-11 23:59 | disposition home health service (06) | LOC: WOU 14:30 | PROVIDERS: ATTEND Podiatrist Foot & Ankle Surgery | DX: E11.621 Type 2 diabetes mellitus with foot ulcer (principal); L97.512 Non-pressure chronic ulcer of other part of right foot with fat layer exposed; E11.51 Type 2 diabetes mellitus with diabetic peripheral angiopathy without gangrene; E11.69 Type 2 diabetes mellitus with other specified complication; M86.371 Chronic multifocal osteomyelitis, right ankle and foot; Z79.84 Long term (current) use of oral hypoglycemic drugs; T86.828 Other complications of skin graft (allograft) (autograft); R60.0 Localized edema; L84 Corns and callosities; Z79.01 Long term (current) use of anticoagulants | CPT/HCPCS: 11042 ==

== ENCOUNTER 2020-07-18 14:30 | Outpatient (CLI) | payer MEDICARE, OTHER ==
[2020-07-18] MEDS ORDERED: LIDOCAINE 2% JEL 5 ML TUBE ONE (14:56)
[2020-07-18] MEDS ORDERED: UREA 10% -AHA 4% CREAM 57 GM TUBE ONE (15:21)
== END 2020-07-18 23:59 | disposition home health service (06) ==
LOC: WOU 14:30
PROVIDERS: ATTEND Podiatrist Foot & Ankle Surgery
DX: E11.51 Type 2 diabetes mellitus with diabetic peripheral angiopathy without gangrene (principal); E11.69 Type 2 diabetes mellitus with other specified complication; M86.371 Chronic multifocal osteomyelitis, right ankle and foot; Z79.84 Long term (current) use of oral hypoglycemic drugs; L84 Corns and callosities; Z89.421 Acquired absence of other right toe(s); Z79.01 Long term (current) use of anticoagulants
CPT/HCPCS: G0463

== ENCOUNTER 2020-08-01 13:23 | Outpatient (CLI) | payer MEDICARE, OTHER ==
[2020-08-01 14:33] LABS: BASOPHILS # (AUTO) 0.1 /CMM (0.0-0.2); BASOPHILS % (AUTO) 0.9 % (0.0-2.0); EOSINOPHILS % (AUTO) 4.1 % (0.0-6.0); HEMATOCRIT 36 % (33-45); HEMOGLOBIN 11.6 g/dL (11.5-14.8); LYMPHOCYTES % (AUTO) 46.3 % (20.0-44.0); MEAN CORPUSCULAR HGB CONC 33 g/dl (31.0-36.0); MEAN CORPUSCULAR VOLUME 96 fL (82-100); MONOCYTES # (AUTO) 0.9 /CMM (0.1-1.30); MONOCYTES % (AUTO) 5.9 % (2.0-12.0); NEUTROPHILS # (AUTO) 6.5 /CMM (1.8-8.9); NEUTROPHILS % (AUTO) 42.8 % (43.0-81.0); PLATELET COUNT (AUTO) 261 /CMM (150-450); WHITE BLOOD COUNT (AUTO) 15.2 K/uL (4.3-11.0)
[2020-08-01 15:07] LABS: CALCIUM, SERUM 9.1 mg/dL (8.5-10.1); CREATININE 1.3 mg/dL (0.6-1.3)
== END 2020-08-01 23:59 | disposition home or self-care (01) ==
LOC: LAB 13:23
DX: Z01.818 Encounter for other preprocedural examination (principal); I70.239 Atherosclerosis of native arteries of right leg with ulceration of unspecified site; E11.9 Type 2 diabetes mellitus without complications; I10 Essential (primary) hypertension
CPT/HCPCS: 36415; 80048-TC; 85025-TC; 85730-TC

== ENCOUNTER 2020-08-08 14:45 | Outpatient (CLI) | payer MEDICARE, OTHER | END 2020-08-08 23:59 | disposition home health service (06) | LOC: WOU 14:45 | PROVIDERS: ATTEND Podiatrist Foot & Ankle Surgery | DX: L03.116 Cellulitis of left lower limb (principal); L03.115 Cellulitis of right lower limb; L84 Corns and callosities; E11.51 Type 2 diabetes mellitus with diabetic peripheral angiopathy without gangrene; Z79.84 Long term (current) use of oral hypoglycemic drugs; B35.1 Tinea unguium; Z89.421 Acquired absence of other right toe(s); Z79.01 Long term (current) use of anticoagulants | CPT/HCPCS: G0463 ==

== ENCOUNTER 2020-08-15 14:46 | Outpatient (CLI) | payer MEDICARE, OTHER ==
[2020-08-15 16:51] LABS: BASOPHILS % (AUTO) 0.6 % (0.0-2.0); EOSINOPHILS % (AUTO) 1.1 % (0.0-6.0); HEMATOCRIT 36 % (33-45); HEMOGLOBIN 11.8 g/dL (11.5-14.8); LYMPHOCYTES # (AUTO) 2.3 /CMM (0.8-4.8); LYMPHOCYTES % (AUTO) 35.3 % (20.0-44.0); MEAN CORPUSCULAR HGB CONC 33 g/dl (31.0-36.0); MEAN CORPUSCULAR VOLUME 94 fL (82-100); MONOCYTES # (AUTO) 0.6 /CMM (0.1-1.30); MONOCYTES % (AUTO) 8.5 % (2.0-12.0); NEUTROPHILS # (AUTO) 3.6 /CMM (1.8-8.9); NEUTROPHILS % (AUTO) 54.5 % (43.0-81.0); PLATELET COUNT (AUTO) 198 /CMM (150-450); RED BLOOD CELL COUNT(AUTO) 3.78 MIL/uL (4.0-5.2); WHITE BLOOD COUNT (AUTO) 6.6 K/uL (4.3-11.0)
[2020-08-15 17:10] LABS: CALCIUM, SERUM 8.4 mg/dL (8.5-10.1); CARBON DIOXIDE 28 mmol/L (21-32); CHLORIDE 99 mmol/L (98-107); GLUCOSE 183 mg/dL (74-106); POTASSIUM 4.1 mmol/L (3.5-5.1); SODIUM SERUM 136 mmol/L (136-145); UREA NITROGEN, BLOOD 9 mg/dL (7-18)
== END 2020-08-15 23:59 | disposition home or self-care (01) ==
LOC: MSC 14:46
PROVIDERS: ATTEND Internal Medicine
DX: R10.13 Epigastric pain (principal); I73.9 Peripheral vascular disease, unspecified; Z79.01 Long term (current) use of anticoagulants; Z89.421 Acquired absence of other right toe(s); E11.42 Type 2 diabetes mellitus with diabetic polyneuropathy; Z79.84 Long term (current) use of oral hypoglycemic drugs; I10 Essential (primary) hypertension; E78.5 Hyperlipidemia, unspecified; E46 Unspecified protein-calorie malnutrition; D64.9 Anemia, unspecified; K21.9 Gastro-esophageal reflux disease without esophagitis; Z79.899 Other long term (current) drug therapy
CPT/HCPCS: 36415; 80048; 80074; 83036; 85025; G0463

== ENCOUNTER 2020-08-15 14:55 | Outpatient (CLI) | payer MEDICARE, OTHER ==
[2020-08-15] MEDS ORDERED: LIDOCAINE 2% JEL 5 ML TUBE ONE (15:16)
== END 2020-08-15 23:59 | disposition home health service (06) ==
LOC: WOU 14:55
PROVIDERS: ATTEND Podiatrist Foot & Ankle Surgery
DX: L03.116 Cellulitis of left lower limb (principal); E11.51 Type 2 diabetes mellitus with diabetic peripheral angiopathy without gangrene; Z79.84 Long term (current) use of oral hypoglycemic drugs; L84 Corns and callosities; Z89.421 Acquired absence of other right toe(s); M79.672 Pain in left foot; Z79.01 Long term (current) use of anticoagulants
CPT/HCPCS: G0463

== ENCOUNTER 2020-08-22 14:35 | Outpatient (CLI) | payer MEDICARE, OTHER | END 2020-08-22 23:59 | disposition home health service (06) | LOC: WOU 14:35 | PROVIDERS: ATTEND Podiatrist Foot & Ankle Surgery | DX: L03.116 Cellulitis of left lower limb (principal); E11.51 Type 2 diabetes mellitus with diabetic peripheral angiopathy without gangrene; L84 Corns and callosities; M79.672 Pain in left foot; Z89.421 Acquired absence of other right toe(s); Z98.62 Peripheral vascular angioplasty status; Z79.01 Long term (current) use of anticoagulants; Z79.84 Long term (current) use of oral hypoglycemic drugs | CPT/HCPCS: G0463 ==

== ENCOUNTER 2020-08-29 14:30 | Outpatient (CLI) | payer MEDICARE, OTHER ==
[2020-08-29] MEDS ORDERED: CADEXOMER IODINE UD 5 GM TUBE ONE (15:13)
== END 2020-08-29 23:59 | disposition home health service (06) ==
LOC: WOU 14:30
PROVIDERS: ATTEND Podiatrist Foot & Ankle Surgery
DX: L03.116 Cellulitis of left lower limb (principal); E11.52 Type 2 diabetes mellitus with diabetic peripheral angiopathy with gangrene; I96 Gangrene, not elsewhere classified; Z79.84 Long term (current) use of oral hypoglycemic drugs; M79.662 Pain in left lower leg; Z79.01 Long term (current) use of anticoagulants; Z89.421 Acquired absence of other right toe(s); Z98.62 Peripheral vascular angioplasty status
CPT/HCPCS: G0463

== ENCOUNTER 2020-09-05 14:20 | Outpatient (CLI) | payer MEDICARE, OTHER ==
[2020-09-05] MEDS ORDERED: LIDOCAINE 2% JEL 5 ML TUBE ONE (14:55)
== END 2020-09-05 23:59 | disposition home health service (06) ==
LOC: WOU 14:20
PROVIDERS: ATTEND Podiatrist Foot & Ankle Surgery
DX: L03.032 Cellulitis of left toe (principal); L03.031 Cellulitis of right toe; L03.116 Cellulitis of left lower limb; E11.621 Type 2 diabetes mellitus with foot ulcer; E11.52 Type 2 diabetes mellitus with diabetic peripheral angiopathy with gangrene; I96 Gangrene, not elsewhere classified; L97.522 Non-pressure chronic ulcer of other part of left foot with fat layer exposed; L97.512 Non-pressure chronic ulcer of other part of right foot with fat layer exposed; Z79.84 Long term (current) use of oral hypoglycemic drugs; L84 Corns and callosities; Z79.01 Long term (current) use of anticoagulants; Z79.899 Other long term (current) drug therapy
CPT/HCPCS: 11042; 87070-TC; 87186-TC

== ENCOUNTER 2020-09-12 14:45 | Outpatient (CLI) | payer MEDICARE, OTHER ==
[~2020-09-12 14:45] MED LIST changes: +LIDOCAINE SOLN 4% 50 ML BOTTLE ONE
== END 2020-09-12 23:59 | disposition home health service (06) ==
LOC: WOU 14:45
PROVIDERS: ATTEND Podiatrist Foot & Ankle Surgery
DX: E11.52 Type 2 diabetes mellitus with diabetic peripheral angiopathy with gangrene (principal); I96 Gangrene, not elsewhere classified; E11.621 Type 2 diabetes mellitus with foot ulcer; L97.522 Non-pressure chronic ulcer of other part of left foot with fat layer exposed; L97.518 Non-pressure chronic ulcer of other part of right foot with other specified severity; L03.116 Cellulitis of left lower limb; L03.032 Cellulitis of left toe; L03.031 Cellulitis of right toe; Z79.01 Long term (current) use of anticoagulants; Z79.84 Long term (current) use of oral hypoglycemic drugs
CPT/HCPCS: 11042

== ENCOUNTER 2020-09-19 14:30 | Outpatient (CLI) | payer MEDICARE, OTHER ==
[~2020-09-19 14:30] MED LIST changes: -LIDOCAINE SOLN 4% 50 ML BOTTLE ONE
[2020-09-19] MEDS ORDERED: LIDOCAINE SOLN 4% 50 ML BOTTLE ONE (14:50)
== END 2020-09-19 23:59 | disposition home health service (06) ==
LOC: WOU 14:30
PROVIDERS: ATTEND Podiatrist Foot & Ankle Surgery
DX: E11.621 Type 2 diabetes mellitus with foot ulcer (principal); L97.522 Non-pressure chronic ulcer of other part of left foot with fat layer exposed; L97.518 Non-pressure chronic ulcer of other part of right foot with other specified severity; E11.52 Type 2 diabetes mellitus with diabetic peripheral angiopathy with gangrene; I96 Gangrene, not elsewhere classified; Z79.84 Long term (current) use of oral hypoglycemic drugs; L03.116 Cellulitis of left lower limb; L03.032 Cellulitis of left toe; L03.031 Cellulitis of right toe; Z89.421 Acquired absence of other right toe(s); Z79.01 Long term (current) use of anticoagulants
CPT/HCPCS: 11042

== ENCOUNTER 2020-09-25 15:47 | Outpatient (CLI) | payer MEDICARE, OTHER ==
[~2020-09-25 15:47] MED LIST changes: -CLIN300C11 PO; +CLIN300C12 PO; -LISI-608 PO; +LISI5TAB24 PO
[2020-09-25 16:18] LABS: BASOPHILS # (AUTO) 0.1 /CMM (0.0-0.2); BASOPHILS % (AUTO) 1.2 % (0.0-2.0); HEMATOCRIT 37 % (33-45); LYMPHOCYTES # (AUTO) 4.1 /CMM (0.8-4.8); LYMPHOCYTES % (AUTO) 40.2 % (20.0-44.0); MEAN CORPUSCULAR HGB CONC 32 g/dl (31.0-36.0); MEAN CORPUSCULAR VOLUME 97 fL (82-100); MONOCYTES # (AUTO) 0.7 /CMM (0.1-1.30); MONOCYTES % (AUTO) 6.9 % (2.0-12.0); NEUTROPHILS # (AUTO) 4.6 /CMM (1.8-8.9); NEUTROPHILS % (AUTO) 45.7 % (43.0-81.0); PLATELET COUNT (AUTO) 277 /CMM (150-450); RED BLOOD CELL COUNT(AUTO) 3.85 MIL/uL (4.0-5.2); WHITE BLOOD COUNT (AUTO) 10.1 K/uL (4.3-11.0)
[2020-09-25 16:30] LABS: CALCIUM, SERUM 8.8 mg/dL (8.5-10.1); CARBON DIOXIDE 24 mmol/L (21-32); CHLORIDE 101 mmol/L (98-107); CREATININE 1.6 mg/dL (0.6-1.3); GLUCOSE 134 mg/dL (74-106); POTASSIUM 4.8 mmol/L (3.5-5.1); SODIUM SERUM 134 mmol/L (136-145); UREA NITROGEN, BLOOD 24 mg/dL (7-18)
== END 2020-09-25 23:59 | disposition home or self-care (01) ==
LOC: MSC 15:47
PROVIDERS: ATTEND Anesthesiology
DX: E11.621 Type 2 diabetes mellitus with foot ulcer (principal); E11.40 Type 2 diabetes mellitus with diabetic neuropathy, unspecified; E11.59 Type 2 diabetes mellitus with other circulatory complications; L97.529 Non-pressure chronic ulcer of other part of left foot with unspecified severity; Z89.422 Acquired absence of other left toe(s); Z99.3 Dependence on wheelchair; Z79.891 Long term (current) use of opiate analgesic
CPT/HCPCS: 36415; 80048; 85025; 85610; 85730; G0463

== ENCOUNTER 2020-09-26 14:30 | Outpatient (CLI) | payer MEDICARE, OTHER ==
[~2020-09-26 14:30] MED LIST changes: +CLIN300C11 PO; -CLIN300C12 PO; +LISI-608 PO; -LISI5TAB24 PO
== END 2020-09-26 23:59 | disposition home health service (06) ==
LOC: WOU 14:30
PROVIDERS: ATTEND Podiatrist Foot & Ankle Surgery
DX: E11.52 Type 2 diabetes mellitus with diabetic peripheral angiopathy with gangrene (principal); I96 Gangrene, not elsewhere classified; E11.621 Type 2 diabetes mellitus with foot ulcer; L97.522 Non-pressure chronic ulcer of other part of left foot with fat layer exposed; L97.528 Non-pressure chronic ulcer of other part of left foot with other specified severity; L97.518 Non-pressure chronic ulcer of other part of right foot with other specified severity; Z79.84 Long term (current) use of oral hypoglycemic drugs; Z79.01 Long term (current) use of anticoagulants
CPT/HCPCS: 11042; 11043

== ENCOUNTER 2020-10-03 14:31 | Outpatient (CLI) | payer MEDICARE, OTHER ==
[~2020-10-03 14:31] MED LIST changes: -CLIN300C11 PO; +CLIN300C12 PO
== END 2020-10-03 23:59 | disposition home health service (06) ==
LOC: WOU 14:31
PROVIDERS: ATTEND Podiatrist Foot & Ankle Surgery
DX: E11.621 Type 2 diabetes mellitus with foot ulcer (principal); L97.522 Non-pressure chronic ulcer of other part of left foot with fat layer exposed; L97.512 Non-pressure chronic ulcer of other part of right foot with fat layer exposed; E11.52 Type 2 diabetes mellitus with diabetic peripheral angiopathy with gangrene; I96 Gangrene, not elsewhere classified; Z89.421 Acquired absence of other right toe(s); Z79.84 Long term (current) use of oral hypoglycemic drugs; Z79.01 Long term (current) use of anticoagulants
CPT/HCPCS: 11042; 11045

== ENCOUNTER 2020-10-10 15:15 | Outpatient (CLI) | payer MEDICARE, OTHER ==
[~2020-10-10 15:15] MED LIST changes: +COLLAGENASE 5 GM TUBE UD TP ONE; -LISI-608 PO; +LISI5TAB24 PO
== END 2020-10-10 23:59 | disposition home health service (06) ==
LOC: WOU 15:15
PROVIDERS: ATTEND Podiatrist Foot & Ankle Surgery
DX: E11.621 Type 2 diabetes mellitus with foot ulcer (principal); L97.522 Non-pressure chronic ulcer of other part of left foot with fat layer exposed; L97.512 Non-pressure chronic ulcer of other part of right foot with fat layer exposed; E11.52 Type 2 diabetes mellitus with diabetic peripheral angiopathy with gangrene; I96 Gangrene, not elsewhere classified; Z79.84 Long term (current) use of oral hypoglycemic drugs; L03.032 Cellulitis of left toe; Z89.421 Acquired absence of other right toe(s); Z79.01 Long term (current) use of anticoagulants
CPT/HCPCS: 11042; 11045

== ENCOUNTER 2020-10-17 14:35 | Outpatient (CLI) | payer MEDICARE, OTHER ==
[~2020-10-17 14:35] MED LIST changes: -COLLAGENASE 5 GM TUBE UD TP ONE
[2020-10-17] MEDS ORDERED: LIDOCAINE SOLN 4% 50 ML BOTTLE ONE (15:16)
== END 2020-10-17 23:59 | disposition home health service (06) ==
LOC: WOU 14:35
PROVIDERS: ATTEND Podiatrist Foot & Ankle Surgery
DX: E11.52 Type 2 diabetes mellitus with diabetic peripheral angiopathy with gangrene (principal); I96 Gangrene, not elsewhere classified; E11.621 Type 2 diabetes mellitus with foot ulcer; L97.522 Non-pressure chronic ulcer of other part of left foot with fat layer exposed; L97.512 Non-pressure chronic ulcer of other part of right foot with fat layer exposed; L03.032 Cellulitis of left toe; Z89.421 Acquired absence of other right toe(s); Z98.62 Peripheral vascular angioplasty status; Z99.3 Dependence on wheelchair; Z79.84 Long term (current) use of oral hypoglycemic drugs; Z79.01 Long term (current) use of anticoagulants
CPT/HCPCS: 11042

== ENCOUNTER 2020-10-24 14:05 | Outpatient (CLI) | payer MEDICARE, OTHER | END 2020-10-24 23:59 | disposition home health service (06) | LOC: WOU 14:05 | PROVIDERS: ATTEND Podiatrist Foot & Ankle Surgery | DX: E11.52 Type 2 diabetes mellitus with diabetic peripheral angiopathy with gangrene (principal); I96 Gangrene, not elsewhere classified; E11.621 Type 2 diabetes mellitus with foot ulcer; L97.522 Non-pressure chronic ulcer of other part of left foot with fat layer exposed; L97.512 Non-pressure chronic ulcer of other part of right foot with fat layer exposed; L97.523 Non-pressure chronic ulcer of other part of left foot with necrosis of muscle; L03.032 Cellulitis of left toe; Z89.421 Acquired absence of other right toe(s); Z79.84 Long term (current) use of oral hypoglycemic drugs; Z79.01 Long term (current) use of anticoagulants; Z98.62 Peripheral vascular angioplasty status | CPT/HCPCS: 11043; 87070-TC; 87075-TC; 87186-TC ==

== ENCOUNTER → 2020-10-25 | Outpatient (CLI) | payer MEDICARE, OTHER | END | disposition home or self-care (01) | LOC: WOU 15:00 | PROVIDERS: ATTEND Specialist | DX: E11.52 Type 2 diabetes mellitus with diabetic peripheral angiopathy with gangrene (principal); I96 Gangrene, not elsewhere classified; E11.621 Type 2 diabetes mellitus with foot ulcer; L97.523 Non-pressure chronic ulcer of other part of left foot with necrosis of muscle; E11.69 Type 2 diabetes mellitus with other specified complication; M86.371 Chronic multifocal osteomyelitis, right ankle and foot; Z79.84 Long term (current) use of oral hypoglycemic drugs; L03.032 Cellulitis of left toe; Z79.01 Long term (current) use of anticoagulants | CPT/HCPCS: G0463 ==

== ENCOUNTER 2020-11-02 09:45 | Outpatient (CLI) | payer MEDICARE, OTHER ==
[2020-11-02] MEDS ORDERED: LIDOCAINE SOLN 4% 50 ML BOTTLE ONE (10:03)
[2020-11-02] MEDS ORDERED: MUPIROCIN 2% CREAM 15 GM TUBE TP ONE (10:17)
== END 2020-11-02 23:59 | disposition home or self-care (01) ==
LOC: WOU 09:45
PROVIDERS: ATTEND Podiatrist Foot & Ankle Surgery
DX: E11.622 Type 2 diabetes mellitus with other skin ulcer (principal); L97.322 Non-pressure chronic ulcer of left ankle with fat layer exposed; E11.621 Type 2 diabetes mellitus with foot ulcer; L97.528 Non-pressure chronic ulcer of other part of left foot with other specified severity; L97.518 Non-pressure chronic ulcer of other part of right foot with other specified severity; E11.52 Type 2 diabetes mellitus with diabetic peripheral angiopathy with gangrene; I96 Gangrene, not elsewhere classified; E11.69 Type 2 diabetes mellitus with other specified complication; M86.371 Chronic multifocal osteomyelitis, right ankle and foot; Z79.84 Long term (current) use of oral hypoglycemic drugs; Z89.421 Acquired absence of other right toe(s); Z79.01 Long term (current) use of anticoagulants
CPT/HCPCS: G0463

== ENCOUNTER 2020-11-07 14:50 | Outpatient (CLI) | payer MEDICARE, OTHER ==
[2020-11-07 15:36] LABS: BASOPHILS # (AUTO) 0.1 /CMM (0.0-0.2); BASOPHILS % (AUTO) 0.9 % (0.0-2.0); EOSINOPHILS % (AUTO) 4.8 % (0.0-6.0); HEMATOCRIT 37 % (33-45); HEMOGLOBIN 12.1 g/dL (11.5-14.8); LYMPHOCYTES # (AUTO) 5.1 /CMM (0.8-4.8); LYMPHOCYTES % (AUTO) 46.1 % (20.0-44.0); MEAN CORPUSCULAR HGB CONC 32 g/dl (31.0-36.0); MEAN CORPUSCULAR VOLUME 95 fL (82-100); MONOCYTES # (AUTO) 0.8 /CMM (0.1-1.30); MONOCYTES % (AUTO) 6.8 % (2.0-12.0); NEUTROPHILS # (AUTO) 4.6 /CMM (1.8-8.9); NEUTROPHILS % (AUTO) 41.4 % (43.0-81.0); PLATELET COUNT (AUTO) 272 /CMM (150-450); RED BLOOD CELL COUNT(AUTO) 3.92 MIL/uL (4.0-5.2); WHITE BLOOD COUNT (AUTO) 11.1 K/uL (4.3-11.0)
[2020-11-07 15:45] LABS: CALCIUM, SERUM 8.9 mg/dL (8.5-10.1); CREATININE 1.3 mg/dL (0.6-1.3); POTASSIUM 4.5 mmol/L (3.5-5.1)
== END 2020-11-07 23:59 | disposition home or self-care (01) ==
LOC: RT 14:50
PROVIDERS: ATTEND Podiatrist Foot & Ankle Surgery
DX: Z01.812 Encounter for preprocedural laboratory examination (principal); E11.621 Type 2 diabetes mellitus with foot ulcer; I96 Gangrene, not elsewhere classified
CPT/HCPCS: 36415; 80048-TC; 85025-TC; 85610-TC; 85730-TC

== ENCOUNTER 2020-11-07 14:55 | Outpatient (CLI) | payer MEDICARE, OTHER | END 2020-11-07 23:59 | disposition home or self-care (01) | LOC: LAB 14:55 | PROVIDERS: ATTEND Podiatrist Foot & Ankle Surgery | DX: Z01.812 Encounter for preprocedural laboratory examination (principal); Z20.822 Contact with and (suspected) exposure to COVID-19 | CPT/HCPCS: C9803; U0003 ==

== ENCOUNTER 2020-11-08 14:14 | Outpatient (CLI) | payer MEDICARE, OTHER | END 2020-11-08 23:59 | disposition home or self-care (01) | LOC: MSC 14:14 | PROVIDERS: ATTEND Internal Medicine | DX: Z01.818 Encounter for other preprocedural examination (principal); E11.52 Type 2 diabetes mellitus with diabetic peripheral angiopathy with gangrene; E11.42 Type 2 diabetes mellitus with diabetic polyneuropathy; I96 Gangrene, not elsewhere classified; Z79.84 Long term (current) use of oral hypoglycemic drugs; Z89.421 Acquired absence of other right toe(s); I10 Essential (primary) hypertension; E78.5 Hyperlipidemia, unspecified; E46 Unspecified protein-calorie malnutrition; D50.9 Iron deficiency anemia, unspecified; K21.9 Gastro-esophageal reflux disease without esophagitis; Z79.891 Long term (current) use of opiate analgesic; Z79.899 Other long term (current) drug therapy ==

== ENCOUNTER 2020-11-09 11:00 | Outpatient (CLI) | payer MEDICARE, OTHER | END 2020-11-09 23:59 | disposition home or self-care (01) | LOC: WOU 11:00 | PROVIDERS: ATTEND Podiatrist Foot & Ankle Surgery | DX: E11.621 Type 2 diabetes mellitus with foot ulcer (principal); L97.523 Non-pressure chronic ulcer of other part of left foot with necrosis of muscle; L97.518 Non-pressure chronic ulcer of other part of right foot with other specified severity; L97.528 Non-pressure chronic ulcer of other part of left foot with other specified severity; E11.69 Type 2 diabetes mellitus with other specified complication; E11.52 Type 2 diabetes mellitus with diabetic peripheral angiopathy with gangrene; I96 Gangrene, not elsewhere classified; M86.371 Chronic multifocal osteomyelitis, right ankle and foot; Z79.84 Long term (current) use of oral hypoglycemic drugs; Z79.01 Long term (current) use of anticoagulants | CPT/HCPCS: 11042 ==

== ENCOUNTER 2020-11-13 06:17 | Day surgery (SDC) | payer MEDICARE, OTHER ==
[2020-11-13] MEDS ORDERED: ANESTHESIA TRAY IN PYXIS 1 EA TRAY MC ONE (06:53)
[2020-11-13] MEDS ORDERED: BUPIVACAINE 0.5 % PF 150 MG/30 ML VIAL ONE (06:54)
[2020-11-13] MEDS ORDERED: LIDOCAINE HCL/MPF 1% 30 ML VIAL IJ ONE (07:45)
[2020-11-13] MEDS ORDERED: VANCOMYCIN 1 GM VIAL ONE (07:45)
== END 2020-11-13 10:03 | disposition home or self-care (01) ==
LOC: DS 06:17
PROVIDERS: ATTEND Podiatrist Foot & Ankle Surgery
DX: E11.621 Type 2 diabetes mellitus with foot ulcer (principal); L97.528 Non-pressure chronic ulcer of other part of left foot with other specified severity; M86.672 Other chronic osteomyelitis, left ankle and foot
CPT/HCPCS: 11044; 28124; 82962; 87070; 87075; 87186; A6209; J3370; J3490 ×2

== ENCOUNTER 2020-11-20 11:15 | Outpatient (CLI) | payer MEDICARE, OTHER ==
[2020-11-20] MEDS ORDERED: LIDOCAINE SOLN 4% 50 ML BOTTLE ONE (11:37)
[2020-11-20] MEDS ORDERED: COLLAGENASE 5 GM TUBE UD TP ONE (12:08)
== END 2020-11-20 23:59 | disposition home or self-care (01) ==
LOC: WOU 11:15
PROVIDERS: ATTEND Podiatrist Foot & Ankle Surgery
DX: E11.621 Type 2 diabetes mellitus with foot ulcer (principal); L97.528 Non-pressure chronic ulcer of other part of left foot with other specified severity; L97.512 Non-pressure chronic ulcer of other part of right foot with fat layer exposed; E11.52 Type 2 diabetes mellitus with diabetic peripheral angiopathy with gangrene; E11.69 Type 2 diabetes mellitus with other specified complication; M86.371 Chronic multifocal osteomyelitis, right ankle and foot; B96.5 Pseudomonas (aeruginosa) (mallei) (pseudomallei) as the cause of diseases classified elsewhere; Z79.84 Long term (current) use of oral hypoglycemic drugs; T81.31XD Disruption of external operation (surgical) wound, not elsewhere classified, subsequent encounter; Z79.01 Long term (current) use of anticoagulants
CPT/HCPCS: 11042

== ENCOUNTER 2020-11-27 09:45 | Outpatient (CLI) | payer MEDICARE, OTHER ==
[2020-11-27] MEDS ORDERED: COLLAGENASE 5 GM TUBE UD TP ONE (10:41)
== END 2020-11-27 23:59 | disposition home health service (06) ==
LOC: WOU 09:45
PROVIDERS: ATTEND Podiatrist Foot & Ankle Surgery
DX: E11.621 Type 2 diabetes mellitus with foot ulcer (principal); L97.522 Non-pressure chronic ulcer of other part of left foot with fat layer exposed; L97.512 Non-pressure chronic ulcer of other part of right foot with fat layer exposed; E11.52 Type 2 diabetes mellitus with diabetic peripheral angiopathy with gangrene; E11.69 Type 2 diabetes mellitus with other specified complication; I96 Gangrene, not elsewhere classified; M86.371 Chronic multifocal osteomyelitis, right ankle and foot; T81.31XD Disruption of external operation (surgical) wound, not elsewhere classified, subsequent encounter; Z89.412 Acquired absence of left great toe; Z89.421 Acquired absence of other right toe(s); Z79.84 Long term (current) use of oral hypoglycemic drugs; Z79.01 Long term (current) use of anticoagulants
CPT/HCPCS: 11042

== ENCOUNTER 2020-12-05 14:25 | Outpatient (CLI) | payer MEDICARE, OTHER ==
[2020-12-05] MEDS ORDERED: COLLAGENASE 5 GM TUBE UD TP ONE (14:48)
== END 2020-12-05 23:59 | disposition home health service (06) ==
LOC: WOU 14:25
PROVIDERS: ATTEND Podiatrist Foot & Ankle Surgery
DX: E11.621 Type 2 diabetes mellitus with foot ulcer (principal); L97.522 Non-pressure chronic ulcer of other part of left foot with fat layer exposed; L97.512 Non-pressure chronic ulcer of other part of right foot with fat layer exposed; E11.52 Type 2 diabetes mellitus with diabetic peripheral angiopathy with gangrene; E11.69 Type 2 diabetes mellitus with other specified complication; M86.371 Chronic multifocal osteomyelitis, right ankle and foot; Z79.84 Long term (current) use of oral hypoglycemic drugs; T81.31XD Disruption of external operation (surgical) wound, not elsewhere classified, subsequent encounter; Z79.01 Long term (current) use of anticoagulants; Z89.412 Acquired absence of left great toe; Z89.421 Acquired absence of other right toe(s)
CPT/HCPCS: 11042

== ENCOUNTER 2020-12-12 12:45 | Outpatient (CLI) | payer MEDICARE, OTHER ==
[2020-12-12] MEDS ORDERED: COLLAGENASE 5 GM TUBE UD TP ONE (13:31)
== END 2020-12-12 23:59 | disposition home health service (06) ==
LOC: WOU 12:45
PROVIDERS: ATTEND Podiatrist Foot & Ankle Surgery
DX: E11.621 Type 2 diabetes mellitus with foot ulcer (principal); L97.522 Non-pressure chronic ulcer of other part of left foot with fat layer exposed; E11.52 Type 2 diabetes mellitus with diabetic peripheral angiopathy with gangrene; I96 Gangrene, not elsewhere classified; E11.69 Type 2 diabetes mellitus with other specified complication; M86.672 Other chronic osteomyelitis, left ankle and foot; Z89.412 Acquired absence of left great toe; Z89.421 Acquired absence of other right toe(s); Z79.84 Long term (current) use of oral hypoglycemic drugs; Z79.01 Long term (current) use of anticoagulants
CPT/HCPCS: 11042

== ENCOUNTER 2020-12-19 14:45 | Outpatient (CLI) | payer MEDICARE, OTHER ==
[~2020-12-19 14:45] MED LIST changes: +LIDOCAINE SOLN 4% 50 ML BOTTLE ONE
[2020-12-19] MEDS ORDERED: COLLAGENASE 5 GM TUBE UD TP ONE (14:51)
== END 2020-12-19 23:59 | disposition home health service (06) ==
LOC: WOU 14:45
PROVIDERS: ATTEND Podiatrist Foot & Ankle Surgery
DX: E11.621 Type 2 diabetes mellitus with foot ulcer (principal); L97.522 Non-pressure chronic ulcer of other part of left foot with fat layer exposed; E11.52 Type 2 diabetes mellitus with diabetic peripheral angiopathy with gangrene; I96 Gangrene, not elsewhere classified; Z79.84 Long term (current) use of oral hypoglycemic drugs; Z89.412 Acquired absence of left great toe; Z79.01 Long term (current) use of anticoagulants
CPT/HCPCS: 11042

== ENCOUNTER 2020-12-26 14:45 | Outpatient (CLI) | payer MEDICARE, OTHER ==
[~2020-12-26 14:45] MED LIST changes: -LIDOCAINE SOLN 4% 50 ML BOTTLE ONE
[2020-12-26] MEDS ORDERED: LIDOCAINE SOLN 4% 50 ML BOTTLE ONE (14:46)
[2020-12-26] MEDS ORDERED: COLLAGENASE 5 GM TUBE UD TP ONE (15:02)
== END 2020-12-26 23:59 | disposition home health service (06) ==
LOC: WOU 14:45
PROVIDERS: ATTEND Podiatrist Foot & Ankle Surgery
DX: E11.621 Type 2 diabetes mellitus with foot ulcer (principal); L97.522 Non-pressure chronic ulcer of other part of left foot with fat layer exposed; E11.52 Type 2 diabetes mellitus with diabetic peripheral angiopathy with gangrene; I96 Gangrene, not elsewhere classified; Z79.84 Long term (current) use of oral hypoglycemic drugs; R52 Pain, unspecified; Z89.412 Acquired absence of left great toe; Z79.01 Long term (current) use of anticoagulants
CPT/HCPCS: G0463

== ENCOUNTER 2021-01-02 13:50 | Outpatient (CLI) | payer MEDICARE, OTHER ==
[2021-01-02] MEDS ORDERED: MUPIROCIN 2% CREAM 15 GM TUBE TP ONE (14:32)
== END 2021-01-02 23:59 | disposition home health service (06) ==
LOC: WOU 13:50
PROVIDERS: ATTEND Podiatrist Foot & Ankle Surgery
DX: E11.621 Type 2 diabetes mellitus with foot ulcer (principal); L97.522 Non-pressure chronic ulcer of other part of left foot with fat layer exposed; E11.52 Type 2 diabetes mellitus with diabetic peripheral angiopathy with gangrene; I96 Gangrene, not elsewhere classified; Z89.412 Acquired absence of left great toe; Z89.421 Acquired absence of other right toe(s); Z79.84 Long term (current) use of oral hypoglycemic drugs; Z79.01 Long term (current) use of anticoagulants
CPT/HCPCS: 11042

== ENCOUNTER 2021-01-08 10:45 | Outpatient (CLI) | payer MEDICARE, OTHER ==
[2021-01-08] MEDS ORDERED: LIDOCAINE SOLN 4% 50 ML BOTTLE ONE (10:57)
[2021-01-08] MEDS ORDERED: COLLAGENASE 5 GM TUBE UD TP ONE (11:35)
== END 2021-01-08 23:59 | disposition home health service (06) ==
LOC: WOU 10:45
PROVIDERS: ATTEND Podiatrist Foot & Ankle Surgery
DX: E11.621 Type 2 diabetes mellitus with foot ulcer (principal); L97.525 Non-pressure chronic ulcer of other part of left foot with muscle involvement without evidence of necrosis; E11.52 Type 2 diabetes mellitus with diabetic peripheral angiopathy with gangrene; I96 Gangrene, not elsewhere classified; Z89.421 Acquired absence of other right toe(s); Z79.84 Long term (current) use of oral hypoglycemic drugs; Z79.01 Long term (current) use of anticoagulants
CPT/HCPCS: 11043

== ENCOUNTER 2021-01-16 14:30 | Outpatient (CLI) | payer MEDICARE, OTHER ==
[2021-01-16] MEDS ORDERED: COLLAGENASE 5 GM TUBE UD TP ONE (15:47)
== END 2021-01-16 23:59 | disposition home health service (06) ==
LOC: WOU 14:30
PROVIDERS: ATTEND Podiatrist Foot & Ankle Surgery
DX: E11.621 Type 2 diabetes mellitus with foot ulcer (principal); L97.525 Non-pressure chronic ulcer of other part of left foot with muscle involvement without evidence of necrosis; E11.52 Type 2 diabetes mellitus with diabetic peripheral angiopathy with gangrene; I96 Gangrene, not elsewhere classified; Z79.84 Long term (current) use of oral hypoglycemic drugs; Z79.01 Long term (current) use of anticoagulants; Z89.421 Acquired absence of other right toe(s); Z79.899 Other long term (current) drug therapy
CPT/HCPCS: 11042

== ENCOUNTER 2021-01-23 14:30 | Outpatient (CLI) | payer MEDICARE, OTHER ==
[2021-01-23] MEDS ORDERED: COLLAGENASE 5 GM TUBE UD TP ONE (15:20)
[2021-01-23] MEDS ORDERED: LIDOCAINE SOLN 4% 50 ML BOTTLE ONE (15:20)
== END 2021-01-23 23:59 | disposition home health service (06) ==
LOC: WOU 14:30
PROVIDERS: ATTEND Podiatrist Foot & Ankle Surgery
DX: E11.621 Type 2 diabetes mellitus with foot ulcer (principal); L97.525 Non-pressure chronic ulcer of other part of left foot with muscle involvement without evidence of necrosis; E11.52 Type 2 diabetes mellitus with diabetic peripheral angiopathy with gangrene; I96 Gangrene, not elsewhere classified; Z89.412 Acquired absence of left great toe; Z79.84 Long term (current) use of oral hypoglycemic drugs; Z79.01 Long term (current) use of anticoagulants; Z79.899 Other long term (current) drug therapy
CPT/HCPCS: 11042

== ENCOUNTER 2021-01-30 14:30 | Outpatient (CLI) | payer MEDICARE, OTHER ==
[2021-01-30] MEDS ORDERED: COLLAGENASE 5 GM TUBE UD TP ONE (15:05)
== END 2021-01-30 23:59 | disposition home health service (06) ==
LOC: WOU 14:30
PROVIDERS: ATTEND Podiatrist Foot & Ankle Surgery
DX: E11.621 Type 2 diabetes mellitus with foot ulcer (principal); L97.522 Non-pressure chronic ulcer of other part of left foot with fat layer exposed; E11.52 Type 2 diabetes mellitus with diabetic peripheral angiopathy with gangrene; I96 Gangrene, not elsewhere classified; Z79.84 Long term (current) use of oral hypoglycemic drugs; Z89.421 Acquired absence of other right toe(s); Z79.01 Long term (current) use of anticoagulants; Z79.899 Other long term (current) drug therapy
CPT/HCPCS: 11042

== ENCOUNTER 2021-02-06 14:48 | Outpatient (CLI) | payer MEDICARE, OTHER ==
[2021-02-06] MEDS ORDERED: COLLAGENASE 5 GM TUBE UD TP ONE (15:50)
== END 2021-02-06 23:59 | disposition home health service (06) ==
LOC: WOU 14:48
PROVIDERS: ATTEND Podiatrist Foot & Ankle Surgery
DX: E11.621 Type 2 diabetes mellitus with foot ulcer (principal); L97.522 Non-pressure chronic ulcer of other part of left foot with fat layer exposed; E11.51 Type 2 diabetes mellitus with diabetic peripheral angiopathy without gangrene; Z79.84 Long term (current) use of oral hypoglycemic drugs; Z89.412 Acquired absence of left great toe; Z89.421 Acquired absence of other right toe(s); Z79.899 Other long term (current) drug therapy; Z79.01 Long term (current) use of anticoagulants
CPT/HCPCS: 11042

== ENCOUNTER 2021-02-13 13:40 | Outpatient (CLI) | payer MEDICARE, OTHER ==
[2021-02-13] MEDS ORDERED: COLLAGENASE 5 GM TUBE UD TP ONE (14:37)
== END 2021-02-13 23:59 | disposition home health service (06) ==
LOC: WOU 13:40
PROVIDERS: ATTEND Podiatrist Foot & Ankle Surgery
DX: E11.621 Type 2 diabetes mellitus with foot ulcer (principal); L97.522 Non-pressure chronic ulcer of other part of left foot with fat layer exposed; E11.51 Type 2 diabetes mellitus with diabetic peripheral angiopathy without gangrene; Z89.412 Acquired absence of left great toe; Z89.421 Acquired absence of other right toe(s); Z79.84 Long term (current) use of oral hypoglycemic drugs; Z79.01 Long term (current) use of anticoagulants; Z79.899 Other long term (current) drug therapy
CPT/HCPCS: 11042

== ENCOUNTER 2021-02-20 14:30 | Outpatient (CLI) | payer MEDICARE, OTHER ==
[2021-02-20] MEDS ORDERED: COLLAGENASE 5 GM TUBE UD TP ONE (15:55)
== END 2021-02-20 23:59 | disposition home health service (06) ==
LOC: WOU 14:30
PROVIDERS: ATTEND Podiatrist Foot & Ankle Surgery
DX: E11.621 Type 2 diabetes mellitus with foot ulcer (principal); L97.522 Non-pressure chronic ulcer of other part of left foot with fat layer exposed; E11.51 Type 2 diabetes mellitus with diabetic peripheral angiopathy without gangrene; E11.69 Type 2 diabetes mellitus with other specified complication; M86.672 Other chronic osteomyelitis, left ankle and foot; Z89.412 Acquired absence of left great toe; Z89.421 Acquired absence of other right toe(s); Z79.84 Long term (current) use of oral hypoglycemic drugs; Z79.01 Long term (current) use of anticoagulants; Z79.899 Other long term (current) drug therapy
CPT/HCPCS: 11042

== ENCOUNTER → 2021-02-27 | Outpatient (CLI) | payer MEDICARE, OTHER ==
[~2021-02-27] MED LIST changes: +COLLAGENASE 5 GM TUBE UD TP ONE; +LIDOCAINE SOLN 4% 50 ML BOTTLE ONE
== END | disposition home health service (06) ==
LOC: WOU 14:35
PROVIDERS: ATTEND Podiatrist Foot & Ankle Surgery
DX: E11.621 Type 2 diabetes mellitus with foot ulcer (principal); L97.522 Non-pressure chronic ulcer of other part of left foot with fat layer exposed; Z89.412 Acquired absence of left great toe; E11.69 Type 2 diabetes mellitus with other specified complication; M86.672 Other chronic osteomyelitis, left ankle and foot; E11.51 Type 2 diabetes mellitus with diabetic peripheral angiopathy without gangrene; Z79.84 Long term (current) use of oral hypoglycemic drugs; Z79.01 Long term (current) use of anticoagulants; Z79.899 Other long term (current) drug therapy; M79.672 Pain in left foot
CPT/HCPCS: 11042

== ENCOUNTER → 2021-03-06 | Outpatient (CLI) | payer MEDICARE, OTHER ==
[~2021-03-06] MED LIST changes: +BACI/NEOM/POLY B OINT PKT 1 UDPKT PACKET ONE; -LIDOCAINE SOLN 4% 50 ML BOTTLE ONE
== END | disposition home health service (06) ==
LOC: WOU 14:30
PROVIDERS: ATTEND Podiatrist Foot & Ankle Surgery
DX: E11.621 Type 2 diabetes mellitus with foot ulcer (principal); L97.522 Non-pressure chronic ulcer of other part of left foot with fat layer exposed; E11.51 Type 2 diabetes mellitus with diabetic peripheral angiopathy without gangrene; E11.69 Type 2 diabetes mellitus with other specified complication; M86.672 Other chronic osteomyelitis, left ankle and foot; Z79.84 Long term (current) use of oral hypoglycemic drugs; S91.111A Laceration without foreign body of right great toe without damage to nail, initial encounter; X58.XXXA Exposure to other specified factors, initial encounter; Y92.89 Other specified places as the place of occurrence of the external cause; Z89.412 Acquired absence of left great toe; Z79.899 Other long term (current) drug therapy; Z79.01 Long term (current) use of anticoagulants; Z89.421 Acquired absence of other right toe(s)
CPT/HCPCS: 11042

== ENCOUNTER 2021-03-13 14:25 | Outpatient (CLI) | payer MEDICARE, OTHER ==
[~2021-03-13 14:25] MED LIST changes: -BACI/NEOM/POLY B OINT PKT 1 UDPKT PACKET ONE; -COLLAGENASE 5 GM TUBE UD TP ONE
[2021-03-13] MEDS ORDERED: COLLAGENASE 5 GM TUBE UD TP ONE (14:51)
== END 2021-03-13 23:59 | disposition home or self-care (01) ==
LOC: WOU 14:25
PROVIDERS: ATTEND Podiatrist Foot & Ankle Surgery
DX: E11.621 Type 2 diabetes mellitus with foot ulcer (principal); L97.522 Non-pressure chronic ulcer of other part of left foot with fat layer exposed; E11.51 Type 2 diabetes mellitus with diabetic peripheral angiopathy without gangrene; E11.69 Type 2 diabetes mellitus with other specified complication; M86.672 Other chronic osteomyelitis, left ankle and foot; Z79.84 Long term (current) use of oral hypoglycemic drugs; Z89.412 Acquired absence of left great toe; Z89.421 Acquired absence of other right toe(s); Z79.01 Long term (current) use of anticoagulants
CPT/HCPCS: 11042

== ENCOUNTER 2021-03-20 14:35 | Outpatient (CLI) | payer MEDICARE, OTHER ==
[2021-03-20] MEDS ORDERED: LIDOCAINE SOLN 4% 50 ML BOTTLE ONE (14:51)
[2021-03-20] MEDS ORDERED: COLLAGENASE 5 GM TUBE UD TP ONE (14:57)
== END 2021-03-20 23:59 | disposition home health service (06) ==
LOC: WOU 14:35
PROVIDERS: ATTEND Podiatrist Foot & Ankle Surgery
DX: E11.621 Type 2 diabetes mellitus with foot ulcer (principal); L97.522 Non-pressure chronic ulcer of other part of left foot with fat layer exposed; E11.51 Type 2 diabetes mellitus with diabetic peripheral angiopathy without gangrene; E11.69 Type 2 diabetes mellitus with other specified complication; M86.672 Other chronic osteomyelitis, left ankle and foot; Z89.412 Acquired absence of left great toe; Z99.3 Dependence on wheelchair; Z79.84 Long term (current) use of oral hypoglycemic drugs; Z79.01 Long term (current) use of anticoagulants; Z79.899 Other long term (current) drug therapy
CPT/HCPCS: 11042

== ENCOUNTER 2021-03-27 13:20 | Outpatient (CLI) | payer MEDICARE, OTHER ==
[2021-03-27] MEDS ORDERED: COLLAGENASE 5 GM TUBE UD TP ONE (13:52)
== END 2021-03-27 23:59 | disposition home health service (06) ==
LOC: WOU 13:20
PROVIDERS: ATTEND Podiatrist Foot & Ankle Surgery
DX: E11.621 Type 2 diabetes mellitus with foot ulcer (principal); L97.526 Non-pressure chronic ulcer of other part of left foot with bone involvement without evidence of necrosis; E11.69 Type 2 diabetes mellitus with other specified complication; M86.672 Other chronic osteomyelitis, left ankle and foot; E11.51 Type 2 diabetes mellitus with diabetic peripheral angiopathy without gangrene; Z89.421 Acquired absence of other right toe(s); Z89.412 Acquired absence of left great toe; Z79.84 Long term (current) use of oral hypoglycemic drugs; Z79.01 Long term (current) use of anticoagulants; Z79.899 Other long term (current) drug therapy
CPT/HCPCS: 11042; 11044; 87070-TC; 87075-TC; 87186-TC

== ENCOUNTER 2021-04-03 14:30 | Outpatient (CLI) | payer MEDICARE, OTHER ==
[2021-04-03] MEDS ORDERED: COLLAGENASE 5 GM TUBE UD TP ONE (15:09)
== END 2021-04-03 23:59 | disposition home health service (06) ==
LOC: WOU 14:30
PROVIDERS: ATTEND Podiatrist Foot & Ankle Surgery
DX: E11.621 Type 2 diabetes mellitus with foot ulcer (principal); L97.526 Non-pressure chronic ulcer of other part of left foot with bone involvement without evidence of necrosis; E11.51 Type 2 diabetes mellitus with diabetic peripheral angiopathy without gangrene; E11.69 Type 2 diabetes mellitus with other specified complication; M86.672 Other chronic osteomyelitis, left ankle and foot; B95.2 Enterococcus as the cause of diseases classified elsewhere; Z79.84 Long term (current) use of oral hypoglycemic drugs; Z79.01 Long term (current) use of anticoagulants; Z79.899 Other long term (current) drug therapy; L84 Corns and callosities
CPT/HCPCS: 11042

== ENCOUNTER 2021-04-10 14:25 | Outpatient (CLI) | payer MEDICARE, OTHER ==
[~2021-04-10 14:25] MED LIST changes: +LIDOCAINE SOLN 4% 50 ML BOTTLE ONE
[2021-04-10] MEDS ORDERED: COLLAGENASE 5 GM TUBE UD TP ONE (14:48)
== END 2021-04-10 23:59 | disposition home health service (06) ==
LOC: WOU 14:25
PROVIDERS: ATTEND Podiatrist Foot & Ankle Surgery
DX: E11.621 Type 2 diabetes mellitus with foot ulcer (principal); L97.526 Non-pressure chronic ulcer of other part of left foot with bone involvement without evidence of necrosis; E11.51 Type 2 diabetes mellitus with diabetic peripheral angiopathy without gangrene; Z89.421 Acquired absence of other right toe(s); Z79.84 Long term (current) use of oral hypoglycemic drugs; Z79.01 Long term (current) use of anticoagulants; Z79.899 Other long term (current) drug therapy
CPT/HCPCS: 11042

== ENCOUNTER 2021-04-17 14:30 | Outpatient (CLI) | payer MEDICARE, OTHER ==
[~2021-04-17 14:30] MED LIST changes: -LIDOCAINE SOLN 4% 50 ML BOTTLE ONE
[2021-04-17] MEDS ORDERED: COLLAGENASE 5 GM TUBE UD TP ONE (14:41)
== END 2021-04-17 23:59 | disposition home health service (06) ==
LOC: WOU 14:30
PROVIDERS: ATTEND Podiatrist Foot & Ankle Surgery
DX: E11.621 Type 2 diabetes mellitus with foot ulcer (principal); L97.522 Non-pressure chronic ulcer of other part of left foot with fat layer exposed; E11.69 Type 2 diabetes mellitus with other specified complication; M86.672 Other chronic osteomyelitis, left ankle and foot; B95.2 Enterococcus as the cause of diseases classified elsewhere; Z16.21 Resistance to vancomycin; Z89.421 Acquired absence of other right toe(s); Z89.412 Acquired absence of left great toe; E11.42 Type 2 diabetes mellitus with diabetic polyneuropathy; Z79.84 Long term (current) use of oral hypoglycemic drugs; Z79.899 Other long term (current) drug therapy; Z79.01 Long term (current) use of anticoagulants; E11.52 Type 2 diabetes mellitus with diabetic peripheral angiopathy with gangrene; I70.269 Atherosclerosis of native arteries of extremities with gangrene, unspecified extremity
CPT/HCPCS: 11042

== ENCOUNTER 2021-04-24 14:20 | Outpatient (CLI) | payer MEDICARE, OTHER ==
[2021-04-24] MEDS ORDERED: COLLAGENASE 5 GM TUBE UD TP ONE (15:00)
== END 2021-04-24 23:59 | disposition home health service (06) ==
LOC: WOU 14:20
PROVIDERS: ATTEND Podiatrist Foot & Ankle Surgery
DX: E11.621 Type 2 diabetes mellitus with foot ulcer (principal); L97.523 Non-pressure chronic ulcer of other part of left foot with necrosis of muscle; Z98.62 Peripheral vascular angioplasty status; L84 Corns and callosities; E11.51 Type 2 diabetes mellitus with diabetic peripheral angiopathy without gangrene; Z89.412 Acquired absence of left great toe; Z89.421 Acquired absence of other right toe(s); Z86.31 Personal history of diabetic foot ulcer; Z99.3 Dependence on wheelchair; Z79.01 Long term (current) use of anticoagulants; Z79.84 Long term (current) use of oral hypoglycemic drugs
CPT/HCPCS: 11042

== ENCOUNTER 2021-05-01 14:45 | Outpatient (CLI) | payer MEDICARE, OTHER ==
[2021-05-01] MEDS ORDERED: COLLAGENASE 5 GM TUBE UD TP ONE (15:09)
== END 2021-05-01 23:59 | disposition home health service (06) ==
LOC: WOU 14:45
PROVIDERS: ATTEND Specialist
DX: E11.621 Type 2 diabetes mellitus with foot ulcer (principal); L97.522 Non-pressure chronic ulcer of other part of left foot with fat layer exposed; E11.51 Type 2 diabetes mellitus with diabetic peripheral angiopathy without gangrene; E11.69 Type 2 diabetes mellitus with other specified complication; M86.672 Other chronic osteomyelitis, left ankle and foot; Z89.412 Acquired absence of left great toe; Z79.01 Long term (current) use of anticoagulants; Z79.899 Other long term (current) drug therapy; Z79.84 Long term (current) use of oral hypoglycemic drugs
CPT/HCPCS: G0463

== ENCOUNTER 2021-05-08 14:15 | Outpatient (CLI) | payer MEDICARE, OTHER ==
[2021-05-08] MEDS ORDERED: COLLAGENASE 5 GM TUBE UD TP ONE (15:30)
== END 2021-05-08 23:59 | disposition home health service (06) ==
LOC: WOU 14:15
PROVIDERS: ATTEND Podiatrist Foot & Ankle Surgery
DX: E11.621 Type 2 diabetes mellitus with foot ulcer (principal); L97.522 Non-pressure chronic ulcer of other part of left foot with fat layer exposed; L97.512 Non-pressure chronic ulcer of other part of right foot with fat layer exposed; L03.116 Cellulitis of left lower limb; E11.69 Type 2 diabetes mellitus with other specified complication; M86.672 Other chronic osteomyelitis, left ankle and foot; E11.51 Type 2 diabetes mellitus with diabetic peripheral angiopathy without gangrene; Z89.412 Acquired absence of left great toe; Z89.421 Acquired absence of other right toe(s); Z79.84 Long term (current) use of oral hypoglycemic drugs; Z79.01 Long term (current) use of anticoagulants; Z79.899 Other long term (current) drug therapy
CPT/HCPCS: 11042; 87070-TC; 87075-TC; 87186-TC

== ENCOUNTER 2021-05-15 14:45 | Outpatient (CLI) | payer MEDICARE, OTHER ==
[~2021-05-15 14:45] MED LIST changes: +LIDOCAINE 2% JEL 5 ML TUBE ONE
[2021-05-15] MEDS ORDERED: COLLAGENASE 5 GM TUBE UD TP ONE (15:29)
== END 2021-05-15 23:59 | disposition home health service (06) ==
LOC: WOU 14:45
PROVIDERS: ATTEND Podiatrist Foot & Ankle Surgery
DX: E11.621 Type 2 diabetes mellitus with foot ulcer (principal); L97.522 Non-pressure chronic ulcer of other part of left foot with fat layer exposed; L97.512 Non-pressure chronic ulcer of other part of right foot with fat layer exposed; E11.51 Type 2 diabetes mellitus with diabetic peripheral angiopathy without gangrene; E11.69 Type 2 diabetes mellitus with other specified complication; M86.672 Other chronic osteomyelitis, left ankle and foot; Z79.84 Long term (current) use of oral hypoglycemic drugs; Z89.412 Acquired absence of left great toe; Z89.421 Acquired absence of other right toe(s); Z79.01 Long term (current) use of anticoagulants
CPT/HCPCS: 11042

== ENCOUNTER 2021-05-22 14:30 | Outpatient (CLI) | payer MEDICARE, OTHER ==
[~2021-05-22 14:30] MED LIST changes: -LIDOCAINE 2% JEL 5 ML TUBE ONE
[2021-05-22] MEDS ORDERED: LIDOCAINE 2% JEL 5 ML TUBE ONE (14:54)
[2021-05-22] MEDS ORDERED: COLLAGENASE 5 GM TUBE UD TP ONE (15:07)
== END 2021-05-22 23:59 | disposition home health service (06) ==
LOC: WOU 14:30
PROVIDERS: ATTEND Podiatrist Foot & Ankle Surgery
DX: E11.621 Type 2 diabetes mellitus with foot ulcer (principal); L97.512 Non-pressure chronic ulcer of other part of right foot with fat layer exposed; E11.51 Type 2 diabetes mellitus with diabetic peripheral angiopathy without gangrene; Z89.412 Acquired absence of left great toe; Z89.421 Acquired absence of other right toe(s); E11.69 Type 2 diabetes mellitus with other specified complication; M86.672 Other chronic osteomyelitis, left ankle and foot; Z79.84 Long term (current) use of oral hypoglycemic drugs; Z79.01 Long term (current) use of anticoagulants; Z79.899 Other long term (current) drug therapy
CPT/HCPCS: 11042

== ENCOUNTER 2021-05-29 14:40 | Outpatient (CLI) | payer MEDICARE, OTHER ==
[2021-05-29] MEDS ORDERED: COLLAGENASE 5 GM TUBE UD TP ONE (14:58)
== END 2021-05-29 23:59 | disposition home health service (06) ==
LOC: WOU 14:40
PROVIDERS: ATTEND Podiatrist Foot & Ankle Surgery
DX: E11.621 Type 2 diabetes mellitus with foot ulcer (principal); L97.514 Non-pressure chronic ulcer of other part of right foot with necrosis of bone; E11.51 Type 2 diabetes mellitus with diabetic peripheral angiopathy without gangrene; Z79.84 Long term (current) use of oral hypoglycemic drugs; Z79.01 Long term (current) use of anticoagulants; Z79.899 Other long term (current) drug therapy
CPT/HCPCS: 11044

== ENCOUNTER → 2021-06-05 | Outpatient (CLI) | payer MEDICARE, OTHER ==
[~2021-06-05] MED LIST changes: +COLLAGENASE 5 GM TUBE UD TP ONE
== END | disposition home health service (06) ==
LOC: WOU 14:30
PROVIDERS: ATTEND Podiatrist Foot & Ankle Surgery
DX: E11.621 Type 2 diabetes mellitus with foot ulcer (principal); L97.514 Non-pressure chronic ulcer of other part of right foot with necrosis of bone; E11.51 Type 2 diabetes mellitus with diabetic peripheral angiopathy without gangrene; Z79.84 Long term (current) use of oral hypoglycemic drugs; Z79.01 Long term (current) use of anticoagulants; Z79.82 Long term (current) use of aspirin; Z79.899 Other long term (current) drug therapy
CPT/HCPCS: 11044

== ENCOUNTER 2021-06-14 08:00 | Outpatient (CLI) | payer MEDICARE, OTHER ==
[~2021-06-14 08:00] MED LIST changes: -COLLAGENASE 5 GM TUBE UD TP ONE
[2021-06-14] MEDS ORDERED: LIDOCAINE SOLN 4% 50 ML BOTTLE ONE (08:15)
== END 2021-06-14 23:59 | disposition home health service (06) ==
LOC: WOU 08:00
PROVIDERS: ATTEND Podiatrist Foot & Ankle Surgery
DX: E11.621 Type 2 diabetes mellitus with foot ulcer (principal); L97.516 Non-pressure chronic ulcer of other part of right foot with bone involvement without evidence of necrosis; E11.51 Type 2 diabetes mellitus with diabetic peripheral angiopathy without gangrene; Z79.84 Long term (current) use of oral hypoglycemic drugs; Z79.01 Long term (current) use of anticoagulants; Z79.899 Other long term (current) drug therapy
CPT/HCPCS: 15275; Q4133 ×2

== ENCOUNTER 2021-06-21 08:15 | Outpatient (CLI) | payer MEDICARE, OTHER | END 2021-06-21 23:59 | disposition home health service (06) | LOC: WOU 08:15 | PROVIDERS: ATTEND Podiatrist Foot & Ankle Surgery | DX: E11.621 Type 2 diabetes mellitus with foot ulcer (principal); L97.516 Non-pressure chronic ulcer of other part of right foot with bone involvement without evidence of necrosis; E11.51 Type 2 diabetes mellitus with diabetic peripheral angiopathy without gangrene; E11.40 Type 2 diabetes mellitus with diabetic neuropathy, unspecified; Z79.84 Long term (current) use of oral hypoglycemic drugs; Z79.01 Long term (current) use of anticoagulants; Z79.899 Other long term (current) drug therapy | CPT/HCPCS: 15275; Q4133 ==

== ENCOUNTER 2021-06-28 08:15 | Outpatient (CLI) | payer MEDICARE, OTHER ==
[2021-06-28] MEDS ORDERED: LIDOCAINE SOLN 4% 50 ML BOTTLE ONE ×2 (08:20→08:28)
[2021-06-28] MEDS ORDERED: BACI/NEOM/POLY B OINT PKT 1 UDPKT PACKET ONE (08:51)
== END 2021-06-28 23:59 | disposition home health service (06) ==
LOC: WOU 08:15
PROVIDERS: ATTEND Podiatrist Foot & Ankle Surgery
DX: E11.621 Type 2 diabetes mellitus with foot ulcer (principal); L97.516 Non-pressure chronic ulcer of other part of right foot with bone involvement without evidence of necrosis; E11.51 Type 2 diabetes mellitus with diabetic peripheral angiopathy without gangrene; Z79.84 Long term (current) use of oral hypoglycemic drugs; Z98.62 Peripheral vascular angioplasty status; Z79.01 Long term (current) use of anticoagulants; Z79.899 Other long term (current) drug therapy
CPT/HCPCS: 11042

== ENCOUNTER 2021-07-24 14:30 | Outpatient (CLI) | payer MEDICARE, OTHER ==
[2021-07-24] MEDS ORDERED: MUPIROCIN 2% CREAM 15 GM TUBE TP ONE (15:01)
== END 2021-07-24 23:59 | disposition home health service (06) ==
LOC: WOU 14:30
PROVIDERS: ATTEND Podiatrist Foot & Ankle Surgery
DX: E11.621 Type 2 diabetes mellitus with foot ulcer (principal); L97.516 Non-pressure chronic ulcer of other part of right foot with bone involvement without evidence of necrosis; L97.422 Non-pressure chronic ulcer of left heel and midfoot with fat layer exposed; E11.51 Type 2 diabetes mellitus with diabetic peripheral angiopathy without gangrene; Z79.84 Long term (current) use of oral hypoglycemic drugs; Z79.899 Other long term (current) drug therapy; Z79.01 Long term (current) use of anticoagulants
CPT/HCPCS: 11042; 11044

== ENCOUNTER 2021-07-31 13:40 | Outpatient (CLI) | payer MEDICARE, OTHER ==
[2021-07-31] MEDS ORDERED: LIDOCAINE SOLN 4% 50 ML BOTTLE ONE (13:52)
[2021-07-31] MEDS ORDERED: MUPIROCIN 2% CREAM 15 GM TUBE TP ONE (13:52)
== END 2021-07-31 23:59 | disposition home health service (06) ==
LOC: WOU 13:40
PROVIDERS: ATTEND Podiatrist Foot & Ankle Surgery
DX: E11.621 Type 2 diabetes mellitus with foot ulcer (principal); L97.422 Non-pressure chronic ulcer of left heel and midfoot with fat layer exposed; L97.516 Non-pressure chronic ulcer of other part of right foot with bone involvement without evidence of necrosis; E11.69 Type 2 diabetes mellitus with other specified complication; E11.42 Type 2 diabetes mellitus with diabetic polyneuropathy; E11.51 Type 2 diabetes mellitus with diabetic peripheral angiopathy without gangrene; M86.672 Other chronic osteomyelitis, left ankle and foot; Z89.412 Acquired absence of left great toe; Z89.421 Acquired absence of other right toe(s); Z79.84 Long term (current) use of oral hypoglycemic drugs; Z79.01 Long term (current) use of anticoagulants; Z79.899 Other long term (current) drug therapy
CPT/HCPCS: 11042

== ENCOUNTER → 2021-08-07 | Outpatient (CLI) | payer MEDICARE, OTHER ==
[~2021-08-07] MED LIST changes: +MUPIROCIN 2% CREAM 15 GM TUBE TP ONE
== END | disposition home health service (06) ==
LOC: WOU 14:30
PROVIDERS: ATTEND Podiatrist Foot & Ankle Surgery
DX: E11.621 Type 2 diabetes mellitus with foot ulcer (principal); L97.516 Non-pressure chronic ulcer of other part of right foot with bone involvement without evidence of necrosis; L97.422 Non-pressure chronic ulcer of left heel and midfoot with fat layer exposed; E11.51 Type 2 diabetes mellitus with diabetic peripheral angiopathy without gangrene; E11.40 Type 2 diabetes mellitus with diabetic neuropathy, unspecified; Z79.84 Long term (current) use of oral hypoglycemic drugs; Z79.01 Long term (current) use of anticoagulants; Z79.899 Other long term (current) drug therapy
CPT/HCPCS: 11044

== ENCOUNTER 2021-08-14 14:35 | Outpatient (CLI) | payer MEDICARE, OTHER ==
[~2021-08-14 14:35] MED LIST changes: -MUPIROCIN 2% CREAM 15 GM TUBE TP ONE
[2021-08-14] MEDS ORDERED: MUPIROCIN 2% CREAM 15 GM TUBE TP ONE (14:50)
== END 2021-08-14 23:59 | disposition home health service (06) ==
LOC: WOU 14:35
PROVIDERS: ATTEND Podiatrist Foot & Ankle Surgery
DX: E11.621 Type 2 diabetes mellitus with foot ulcer (principal); L97.514 Non-pressure chronic ulcer of other part of right foot with necrosis of bone; E11.51 Type 2 diabetes mellitus with diabetic peripheral angiopathy without gangrene; Z79.84 Long term (current) use of oral hypoglycemic drugs; Z79.01 Long term (current) use of anticoagulants; Z79.899 Other long term (current) drug therapy
CPT/HCPCS: 11044

== ENCOUNTER 2021-08-21 14:30 | Outpatient (CLI) | payer MEDICARE, OTHER ==
[2021-08-21] MEDS ORDERED: LIDOCAINE SOLN 4% 50 ML BOTTLE ONE (14:47)
[2021-08-21] MEDS ORDERED: MUPIROCIN 2% CREAM 15 GM TUBE TP ONE (15:00)
== END 2021-08-21 23:59 | disposition home health service (06) ==
LOC: WOU 14:30
PROVIDERS: ATTEND Podiatrist Foot & Ankle Surgery
DX: E11.621 Type 2 diabetes mellitus with foot ulcer (principal); L97.516 Non-pressure chronic ulcer of other part of right foot with bone involvement without evidence of necrosis; E11.51 Type 2 diabetes mellitus with diabetic peripheral angiopathy without gangrene; Z79.84 Long term (current) use of oral hypoglycemic drugs; Z79.01 Long term (current) use of anticoagulants; Z79.899 Other long term (current) drug therapy
CPT/HCPCS: 11042

== ENCOUNTER 2021-09-04 14:30 | Outpatient (CLI) | payer MEDICARE, OTHER ==
[2021-09-04] MEDS ORDERED: MUPIROCIN 2% CREAM 15 GM TUBE TP ONE (14:57)
[2021-09-04] MEDS ORDERED: GENTAMICIN 0.1% CREAM 15 GM TUBE ONE (14:57)
[2021-09-04] MEDS ORDERED: LIDOCAINE SOLN 4% 50 ML BOTTLE ONE (14:58)
== END 2021-09-04 23:59 | disposition home health service (06) ==
LOC: WOU 14:30
PROVIDERS: ATTEND Podiatrist Foot & Ankle Surgery
DX: E11.621 Type 2 diabetes mellitus with foot ulcer (principal); L97.514 Non-pressure chronic ulcer of other part of right foot with necrosis of bone; E11.40 Type 2 diabetes mellitus with diabetic neuropathy, unspecified; E11.51 Type 2 diabetes mellitus with diabetic peripheral angiopathy without gangrene; Z79.84 Long term (current) use of oral hypoglycemic drugs; Z79.01 Long term (current) use of anticoagulants; Z79.899 Other long term (current) drug therapy
CPT/HCPCS: 11044

== ENCOUNTER 2021-09-11 14:30 | Outpatient (CLI) | payer MEDICARE, OTHER ==
[2021-09-11] MEDS ORDERED: LIDOCAINE 2% JEL 5 ML TUBE ONE (14:41)
== END 2021-09-11 23:59 | disposition home health service (06) ==
LOC: WOU 14:30
PROVIDERS: ATTEND Podiatrist Foot & Ankle Surgery
DX: E11.621 Type 2 diabetes mellitus with foot ulcer (principal); L97.514 Non-pressure chronic ulcer of other part of right foot with necrosis of bone; E11.40 Type 2 diabetes mellitus with diabetic neuropathy, unspecified; E11.51 Type 2 diabetes mellitus with diabetic peripheral angiopathy without gangrene; Z79.84 Long term (current) use of oral hypoglycemic drugs; Z79.01 Long term (current) use of anticoagulants; Z79.899 Other long term (current) drug therapy
CPT/HCPCS: 11044

== ENCOUNTER 2021-09-18 14:30 | Outpatient (CLI) | payer MEDICARE, OTHER | END 2021-09-18 23:59 | disposition home health service (06) | LOC: WOU 14:30 | PROVIDERS: ATTEND Podiatrist Foot & Ankle Surgery | DX: E11.621 Type 2 diabetes mellitus with foot ulcer (principal); L97.516 Non-pressure chronic ulcer of other part of right foot with bone involvement without evidence of necrosis; E11.52 Type 2 diabetes mellitus with diabetic peripheral angiopathy with gangrene; I96 Gangrene, not elsewhere classified; Z79.84 Long term (current) use of oral hypoglycemic drugs; Z79.01 Long term (current) use of anticoagulants; Z79.899 Other long term (current) drug therapy | CPT/HCPCS: G0463 ==

== ENCOUNTER 2021-09-19 13:00 | Outpatient (CLI) | payer MEDICARE, OTHER ==
[2021-09-19 13:30] LABS: BASOPHILS # (AUTO) 0.1 K/uL (0.0-0.2); BASOPHILS % (AUTO) 0.8 % (0.0-2.0); EOSINOPHILS % (AUTO) 2.6 % (0.0-6.0); HEMATOCRIT 37 % (33-45); HEMOGLOBIN 12.2 g/dL (11.5-14.8); LYMPHOCYTES # (AUTO) 7.9 K/uL (0.8-4.8); LYMPHOCYTES % (AUTO) 52.4 % (20.0-44.0); MEAN CORPUSCULAR HGB CONC 33 g/dl (31.0-36.0); MEAN CORPUSCULAR VOLUME 98 fL (82-100); MONOCYTES # (AUTO) 1.1 K/uL (0.1-1.30); MONOCYTES % (AUTO) 7.5 % (2.0-12.0); NEUTROPHILS # (AUTO) 5.5 K/uL (1.8-8.9); NEUTROPHILS % (AUTO) 36.7 % (43.0-81.0); PLATELET COUNT (AUTO) 260 K/uL (150-450); RED BLOOD CELL COUNT(AUTO) 3.82 MIL/uL (4.0-5.2)
[2021-09-19 13:51] LABS: CALCIUM, SERUM 8.8 mg/dL (8.5-10.1); CREATININE 1.3 mg/dL (0.6-1.3); POTASSIUM 4.8 mmol/L (3.5-5.1)
== END 2021-09-19 23:59 | disposition home or self-care (01) ==
LOC: LAB 13:00
PROVIDERS: ATTEND Podiatrist Foot & Ankle Surgery
DX: Z01.818 Encounter for other preprocedural examination (principal); E11.621 Type 2 diabetes mellitus with foot ulcer; M86.671 Other chronic osteomyelitis, right ankle and foot; I96 Gangrene, not elsewhere classified
CPT/HCPCS: 36415; 71045-TC; 80048-TC; 85025-TC; 85730-TC

== ENCOUNTER 2021-09-24 08:20 | Outpatient (CLI) | payer MEDICARE, OTHER ==
[2021-09-24] MEDS ORDERED: LIDOCAINE 2% JEL 5 ML TUBE ONE (08:54)
[2021-09-24] MEDS ORDERED: GENTAMICIN 0.1% CREAM 15 GM TUBE ONE (09:46)
== END 2021-09-24 23:59 | disposition home health service (06) ==
LOC: WOU 08:20
PROVIDERS: ATTEND Podiatrist Foot & Ankle Surgery
DX: E11.621 Type 2 diabetes mellitus with foot ulcer (principal); L97.514 Non-pressure chronic ulcer of other part of right foot with necrosis of bone; E11.52 Type 2 diabetes mellitus with diabetic peripheral angiopathy with gangrene; E11.40 Type 2 diabetes mellitus with diabetic neuropathy, unspecified; I96 Gangrene, not elsewhere classified; Z79.84 Long term (current) use of oral hypoglycemic drugs; Z79.01 Long term (current) use of anticoagulants; Z79.899 Other long term (current) drug therapy; M79.674 Pain in right toe(s)
CPT/HCPCS: G0463

== ENCOUNTER 2021-09-24 09:30 | Outpatient (CLI) | payer MEDICARE, OTHER | END 2021-09-24 23:59 | disposition home or self-care (01) | LOC: LAB 09:30 | PROVIDERS: ATTEND Podiatrist Foot & Ankle Surgery | DX: Z01.812 Encounter for preprocedural laboratory examination (principal); Z20.822 Contact with and (suspected) exposure to COVID-19 | CPT/HCPCS: C9803; U0003 ==

== ENCOUNTER 2021-09-27 05:32 | Day surgery (SDC) | payer MEDICARE, OTHER ==
[~2021-09-27] VITALS: Ht 152.4 cm; Wt 83.0 kg
[2021-09-27 07:00] VITALS: BP 158/72
[2021-09-27] MEDS ORDERED: ANESTHESIA TRAY IN PYXIS 1 EA TRAY MC ONE (07:08)
[2021-09-27] MEDS ORDERED: BUPIVACAINE 0.25% 75 MG/30 ML VIAL ONE (07:08)
[2021-09-27] MEDS ORDERED: LIDOCAINE 1% INJ 50 ML MDV IJ ONE (07:08)
[2021-09-27] MEDS ORDERED: FENTANYL PF 100MCG/2ML AMPUL ONE (07:25)
--- NOTE | 2021-09-27 08:07 | NUR ---
RN OPENING NOTE PATIENT IS NOT IN ROOM WAS TAKEN TO SURGERY DURING THE PREVIOUS SHIFT.
[2021-09-27] MEDS ORDERED: TRAMADOL HCL 50 MG TABLET PO PRN (09:00)
[2021-09-27] MEDS ORDERED: HYDROCODONE/APAP 5/325MG TABLET PO PRN (09:00)
--- NOTE | 2021-09-27 09:45 | NUR ---
RN NOTES PATIENT CAME BACK FROM SURGERY, SHE IS IN ROOM RESTING, V/S STABLE.
[2021-09-27 10:00] VITALS: BP 122/54
--- NOTE | 2021-09-27 11:00 | NUR ---
SWITCHBOARD INSTALLER NOTE PATIENT DISCHARGE IN STABLE CONDITION. A/O X4. V/S TAKEN, STABLE AND RECORDED. NO IV ACCESS. SKIN ASSESSMENT DONE, SKIN IS INTACT, SURGICAL SITE AND DRESSING INTACT, CLEAN AND DRY. NAME ARM BAND REMOVED. HEALTH TEACHING AND DISCHARGE INSTRUCTIONS GIVEN TO PATIENT AND PATIENT'S DAUGHTER, VERBALIZED UNDERSTANDING. PATIENT LEFT UNIT VIA WHEELCHAIR WITH NO SIGNS OF DISTRESS, ACCOMPANIED BY RN TO THE LOBBY. CHARGE NURSE AWARE OF DISCHARGED.
[2021-09-27] MEDS ORDERED: IV NS 0.9% 1,000 ML BAG IV ONE (11:29)
[2021-09-27] MEDS ORDERED: PROPOFOL 200 MG/20 ML VIAL IV ONE (11:29)
[2021-09-27] MEDS ORDERED: IV SET PRIMARY 1 EA INFUS.SET MC ONE (11:29)
[2021-09-27] MEDS ORDERED: CEFAZOLIN 1 GM VIAL IV ONE (11:29)
[2021-09-27] MEDS ORDERED: LIDOCAINE HCL/PF 2 % 5ML SDV 5 ML VIAL IV ONE (11:29)
== END 2021-09-27 16:00 | disposition home or self-care (01) ==
LOC: DS 05:32 → UNDOADMIN 05:33 → MED 05:33 → UNDODISIN 11:30 → DS 16:00
PROVIDERS: ATTEND Podiatrist Foot & Ankle Surgery
DX: E11.621 Type 2 diabetes mellitus with foot ulcer (principal); E11.52 Type 2 diabetes mellitus with diabetic peripheral angiopathy with gangrene; I96 Gangrene, not elsewhere classified; M86.171 Other acute osteomyelitis, right ankle and foot; L97.519 Non-pressure chronic ulcer of other part of right foot with unspecified severity; E11.22 Type 2 diabetes mellitus with diabetic chronic kidney disease; I12.9 Hypertensive chronic kidney disease with stage 1 through stage 4 chronic kidney disease, or unspecified chronic kidney disease; N18.30 Chronic kidney disease, stage 3 unspecified; Z98.890 Other specified postprocedural states; Z79.899 Other long term (current) drug therapy
CPT/HCPCS: 36415; 85610-TC; 85730-TC; 87070-TC; 87075-TC; 87081-TC; 88305-TC; 88311-TC; G0378; J0690; J2704; J3010; J3490; J7030

== ENCOUNTER 2021-10-04 09:50 | Outpatient (CLI) | payer MEDICARE, OTHER | END 2021-10-04 23:59 | disposition home health service (06) | LOC: WOU 09:50 | PROVIDERS: ATTEND Podiatrist Foot & Ankle Surgery | DX: Z47.81 Encounter for orthopedic aftercare following surgical amputation (principal); Z89.421 Acquired absence of other right toe(s); E11.51 Type 2 diabetes mellitus with diabetic peripheral angiopathy without gangrene; Z79.84 Long term (current) use of oral hypoglycemic drugs; B35.1 Tinea unguium; Z79.01 Long term (current) use of anticoagulants; Z79.899 Other long term (current) drug therapy | CPT/HCPCS: G0463 ==

== ENCOUNTER 2021-10-09 14:30 | Outpatient (CLI) | payer MEDICARE, OTHER | END 2021-10-09 23:59 | disposition home health service (06) | LOC: WOU 14:30 | PROVIDERS: ATTEND Podiatrist Foot & Ankle Surgery | DX: Z47.81 Encounter for orthopedic aftercare following surgical amputation (principal); Z89.421 Acquired absence of other right toe(s); E11.51 Type 2 diabetes mellitus with diabetic peripheral angiopathy without gangrene; E11.40 Type 2 diabetes mellitus with diabetic neuropathy, unspecified; Z79.84 Long term (current) use of oral hypoglycemic drugs; M79.671 Pain in right foot; L84 Corns and callosities; Z79.01 Long term (current) use of anticoagulants; Z79.899 Other long term (current) drug therapy | CPT/HCPCS: G0463 ==

== ENCOUNTER 2021-10-16 14:30 | Outpatient (CLI) | payer MEDICARE, OTHER | END 2021-10-16 23:59 | disposition home health service (06) | LOC: WOU 14:30 | PROVIDERS: ATTEND Podiatrist Foot & Ankle Surgery | DX: E11.40 Type 2 diabetes mellitus with diabetic neuropathy, unspecified (principal); E11.51 Type 2 diabetes mellitus with diabetic peripheral angiopathy without gangrene; L84 Corns and callosities; L60.1 Onycholysis; Z89.421 Acquired absence of other right toe(s) | CPT/HCPCS: G0463 ==

== ENCOUNTER 2021-10-23 14:30 | Outpatient (CLI) | payer MEDICARE, OTHER | END 2021-10-23 23:59 | disposition home health service (06) | LOC: WOU 14:30 | PROVIDERS: ATTEND Podiatrist Foot & Ankle Surgery | DX: T81.89XD Other complications of procedures, not elsewhere classified, subsequent encounter (principal); E11.51 Type 2 diabetes mellitus with diabetic peripheral angiopathy without gangrene; E11.40 Type 2 diabetes mellitus with diabetic neuropathy, unspecified; L84 Corns and callosities; Z89.421 Acquired absence of other right toe(s); Z79.899 Other long term (current) drug therapy | CPT/HCPCS: G0463 ==

== ENCOUNTER 2021-10-30 14:30 | Outpatient (CLI) | payer MEDICARE, OTHER ==
[2021-10-30] MEDS ORDERED: GENTAMICIN 0.1% CREAM 15 GM TUBE ONE (15:02)
== END 2021-10-30 23:59 | disposition home health service (06) ==
LOC: WOU 14:30
PROVIDERS: ATTEND Podiatrist Foot & Ankle Surgery
DX: T81.31XA Disruption of external operation (surgical) wound, not elsewhere classified, initial encounter (principal); E11.621 Type 2 diabetes mellitus with foot ulcer; L97.512 Non-pressure chronic ulcer of other part of right foot with fat layer exposed; E11.51 Type 2 diabetes mellitus with diabetic peripheral angiopathy without gangrene; E11.40 Type 2 diabetes mellitus with diabetic neuropathy, unspecified; Z79.899 Other long term (current) drug therapy
CPT/HCPCS: 11042

== ENCOUNTER 2021-11-06 14:20 | Outpatient (CLI) | payer MEDICARE, OTHER | END 2021-11-06 23:59 | disposition home health service (06) | LOC: WOU 14:20 | PROVIDERS: ATTEND Podiatrist Foot & Ankle Surgery | DX: E11.621 Type 2 diabetes mellitus with foot ulcer (principal); L97.511 Non-pressure chronic ulcer of other part of right foot limited to breakdown of skin; E11.51 Type 2 diabetes mellitus with diabetic peripheral angiopathy without gangrene; E11.40 Type 2 diabetes mellitus with diabetic neuropathy, unspecified; Z79.899 Other long term (current) drug therapy; L84 Corns and callosities | CPT/HCPCS: 11042 ==

== ENCOUNTER 2021-11-13 14:25 | Outpatient (CLI) | payer MEDICARE, OTHER ==
[2021-11-13] MEDS ORDERED: GENTAMICIN 0.1% CREAM 15 GM TUBE ONE (14:52)
[2021-11-13] MEDS ORDERED: LIDOCAINE 2% JEL 5 ML TUBE ONE (14:53)
== END 2021-11-13 23:59 | disposition home health service (06) ==
LOC: WOU 14:25
PROVIDERS: ATTEND Podiatrist Foot & Ankle Surgery
DX: E11.621 Type 2 diabetes mellitus with foot ulcer (principal); L97.512 Non-pressure chronic ulcer of other part of right foot with fat layer exposed; E11.51 Type 2 diabetes mellitus with diabetic peripheral angiopathy without gangrene; E11.40 Type 2 diabetes mellitus with diabetic neuropathy, unspecified; L84 Corns and callosities; Z79.899 Other long term (current) drug therapy
CPT/HCPCS: 11042

== ENCOUNTER 2021-11-20 14:30 | Outpatient (CLI) | payer MEDICARE, OTHER ==
[2021-11-20] MEDS ORDERED: GENTAMICIN 0.1% CREAM 15 GM TUBE ONE (14:50)
== END 2021-11-20 23:59 | disposition home health service (06) ==
LOC: WOU 14:30
PROVIDERS: ATTEND Podiatrist Foot & Ankle Surgery
DX: E11.621 Type 2 diabetes mellitus with foot ulcer (principal); L97.512 Non-pressure chronic ulcer of other part of right foot with fat layer exposed; E11.40 Type 2 diabetes mellitus with diabetic neuropathy, unspecified; E11.51 Type 2 diabetes mellitus with diabetic peripheral angiopathy without gangrene; Z89.421 Acquired absence of other right toe(s); Z79.899 Other long term (current) drug therapy
CPT/HCPCS: 11042

== ENCOUNTER 2021-11-27 14:30 | Outpatient (CLI) | payer MEDICARE, OTHER ==
[2021-11-27] MEDS ORDERED: LIDOCAINE 2% JEL 5 ML TUBE ONE (14:39)
[2021-11-27] MEDS ORDERED: GENTAMICIN 0.1% CREAM 15 GM TUBE ONE (15:02)
== END 2021-11-27 23:59 | disposition home health service (06) ==
LOC: WOU 14:30
PROVIDERS: ATTEND Podiatrist Foot & Ankle Surgery
DX: E11.621 Type 2 diabetes mellitus with foot ulcer (principal); L97.512 Non-pressure chronic ulcer of other part of right foot with fat layer exposed; E11.40 Type 2 diabetes mellitus with diabetic neuropathy, unspecified; E11.51 Type 2 diabetes mellitus with diabetic peripheral angiopathy without gangrene; L84 Corns and callosities; Z79.899 Other long term (current) drug therapy
CPT/HCPCS: 11042

== ENCOUNTER 2021-12-04 14:30 | Outpatient (CLI) | payer MEDICARE, OTHER | END 2021-12-04 23:59 | disposition home health service (06) | LOC: WOU 14:30 | PROVIDERS: ATTEND Podiatrist Foot & Ankle Surgery | DX: E11.621 Type 2 diabetes mellitus with foot ulcer (principal); L97.512 Non-pressure chronic ulcer of other part of right foot with fat layer exposed; E11.40 Type 2 diabetes mellitus with diabetic neuropathy, unspecified; E11.51 Type 2 diabetes mellitus with diabetic peripheral angiopathy without gangrene; L84 Corns and callosities; Z79.899 Other long term (current) drug therapy; Z89.421 Acquired absence of other right toe(s) | CPT/HCPCS: 11042 ==

== ENCOUNTER 2021-12-11 14:30 | Outpatient (CLI) | payer MEDICARE, OTHER ==
[2021-12-11] MEDS ORDERED: SILVER SULFADIAZINE CREAM 25 GM TUBE ONE (14:49)
[2021-12-11] MEDS ORDERED: LIDOCAINE SOLN 4% 50 ML BOTTLE ONE (14:50)
== END 2021-12-11 23:59 | disposition home health service (06) ==
LOC: WOU 14:30
PROVIDERS: ATTEND Podiatrist Foot & Ankle Surgery
DX: E11.621 Type 2 diabetes mellitus with foot ulcer (principal); L97.512 Non-pressure chronic ulcer of other part of right foot with fat layer exposed; E11.40 Type 2 diabetes mellitus with diabetic neuropathy, unspecified; E11.51 Type 2 diabetes mellitus with diabetic peripheral angiopathy without gangrene; L84 Corns and callosities; Z79.899 Other long term (current) drug therapy
CPT/HCPCS: 11042

== ENCOUNTER 2022-02-12 14:30 | Outpatient (CLI) | payer MEDICARE, OTHER | END 2022-02-12 23:59 | disposition home health service (06) | LOC: WOU 14:30 | PROVIDERS: ATTEND Podiatrist Foot & Ankle Surgery | DX: E11.621 Type 2 diabetes mellitus with foot ulcer (principal); L97.512 Non-pressure chronic ulcer of other part of right foot with fat layer exposed; E11.40 Type 2 diabetes mellitus with diabetic neuropathy, unspecified; E11.51 Type 2 diabetes mellitus with diabetic peripheral angiopathy without gangrene; Z79.899 Other long term (current) drug therapy | CPT/HCPCS: 11042 ==

== ENCOUNTER 2022-02-19 14:30 | Outpatient (CLI) | payer MEDICARE, OTHER ==
[2022-02-19] MEDS ORDERED: LIDOCAINE SOLN 4% 50 ML BOTTLE ONE (14:41)
[2022-02-19] MEDS ORDERED: CADEXOMER IODINE UD 5 GM TUBE ONE (15:03)
== END 2022-02-19 23:59 | disposition home health service (06) ==
LOC: WOU 14:30
PROVIDERS: ATTEND Podiatrist Foot & Ankle Surgery
DX: E11.621 Type 2 diabetes mellitus with foot ulcer (principal); L97.512 Non-pressure chronic ulcer of other part of right foot with fat layer exposed; E11.40 Type 2 diabetes mellitus with diabetic neuropathy, unspecified; E11.51 Type 2 diabetes mellitus with diabetic peripheral angiopathy without gangrene; L84 Corns and callosities; Z79.899 Other long term (current) drug therapy
CPT/HCPCS: 11042

== ENCOUNTER 2022-03-05 14:24 | Outpatient (CLI) | payer MEDICARE, OTHER ==
[2022-03-05] MEDS ORDERED: LIDOCAINE 2% JEL 5 ML TUBE ONE (14:31)
== END 2022-03-05 23:59 | disposition home health service (06) ==
LOC: WOU 14:24
PROVIDERS: ATTEND Podiatrist Foot & Ankle Surgery
DX: E11.621 Type 2 diabetes mellitus with foot ulcer (principal); L97.512 Non-pressure chronic ulcer of other part of right foot with fat layer exposed; E11.40 Type 2 diabetes mellitus with diabetic neuropathy, unspecified; E11.51 Type 2 diabetes mellitus with diabetic peripheral angiopathy without gangrene; L84 Corns and callosities; Z79.899 Other long term (current) drug therapy
CPT/HCPCS: 11042

== ENCOUNTER 2022-03-12 14:30 | Outpatient (CLI) | payer MEDICARE, OTHER ==
[2022-03-12] MEDS ORDERED: CADEXOMER IODINE UD 5 GM TUBE ONE (15:05)
== END 2022-03-12 23:59 | disposition home health service (06) ==
LOC: WOU 14:30
PROVIDERS: ATTEND Podiatrist Foot & Ankle Surgery
DX: E11.621 Type 2 diabetes mellitus with foot ulcer (principal); L97.512 Non-pressure chronic ulcer of other part of right foot with fat layer exposed; E11.51 Type 2 diabetes mellitus with diabetic peripheral angiopathy without gangrene; E11.40 Type 2 diabetes mellitus with diabetic neuropathy, unspecified; L84 Corns and callosities; Z79.899 Other long term (current) drug therapy; Z89.421 Acquired absence of other right toe(s)
CPT/HCPCS: 11042